=== PATIENT | female | born 1945 | race Caucasian/White ===

== ENCOUNTER 2021-01-24 10:37 | Outpatient (CLI) | payer MEDICARE, SELFPAY ==
--- NOTE | 2021-01-24 11:00 | MR_ITS ---
WS: [id number] MRI BRAIN WITHOUT CONTRAST HISTORY: NEW DAILY PERSISTENT HEADACHE;DIZZINESS;ALZHEIMERS DZ COMPARISON: 11/29/2007 TECHNIQUE: Diffusion imaging, multiplanar T1, T2 and FLAIR imaging obtained. No evidence for acute infarct or hemorrhage. Ferro-white matter differentiation is normal. Mild chronic microvascular ischemic changes in the periventricular white matter and subcortical white matter with moderate progression since 2007. Ventricles and extra-axial spaces are normal. No inferior displacement of cerebellar tonsils. The sella turcica and pituitary gland are unremarkabl e. Posterior fossa is also unremarkable. Dural venous sinuses and [place] demonstrate no abnormality on this unenhanced studies. Paranasal sinuses: Clear. Mastoid air cells: Normal. Calvarium and scalp: Intact. MR/MR head wo con* [id number] IMPRESSION: 1. No acute infarct. 2. Moderate chronic microvascular ischemic changes has moderately progressed s brittany 2007. No acute intracranial process.
== END 2021-01-24 10:38 | disposition home or self-care (01) ==
PROVIDERS: PCP Family Medicine; Visit Provider Nurse Practitioner Family
DX: G44.52 New daily persistent headache (NDPH) (principal); R42 Dizziness and giddiness; G30.9 Alzheimer's disease, unspecified
CPT/HCPCS: 70551

== ENCOUNTER 2021-04-02 09:09 | Outpatient (CLI) | payer MEDICARE, SELFPAY ==
[2021-04-02 09:36] VITALS: BP 136/80; PULSE 77; RESP 14; TEMP 37.1; O2SAT 97
[2021-04-02 10:57] VITALS: BP 116/67; PULSE 73; RESP 12; TEMP 37.2; O2SAT 97
== END 2021-04-02 15:49 | disposition home or self-care (01) ==
PROVIDERS: PCP Family Medicine; Visit Provider Internal Medicine
DX: U07.1 COVID-19 (principal)
CPT/HCPCS: 96365

== ENCOUNTER 2022-01-31 10:07 | Outpatient (CLI) | payer MEDICARE, SELFPAY ==
--- NOTE | 2022-01-31 10:19 | MM_ITS ---
WS: [id number] BILATERAL 3D TOMOSYNTHESIS DIGITAL SCREENING MAMMOGRAPHY WITH CAD CLINICAL INFORMATION: SCREENING HISTORY: Screening mammogram. No current complaints. COMPARISON: None. TECHNIQUE: Bilateral CC and MLO views. FINDINGS: The breasts are composed of heterogeneous fibroglandular density tissue, which can limit the detectio n of small underlying mass lesions. Vascular calcification. Punctate calcifications. Postoperative ch anges RIGHT breast with dystrophic calcifications. No suspicious mass, asymmetry, calcifications, or architectural distortion. No evidence of malignancy. MM/[place] [id number] IMPRESSION: BI-RADS: 2-Benign FOLLOW UP: 1 Year Follow-up Recommend return to annual screening mammography.
== END 2022-01-31 10:08 | disposition home or self-care (01) ==
PROVIDERS: PCP Family Medicine; Visit Provider Family Medicine
DX: Z12.31 Encounter for screening mammogram for malignant neoplasm of breast (principal)
CPT/HCPCS: 77063; 77067

== ENCOUNTER 2023-01-07 08:41 | Emergency (ER) | payer MEDICARE, SELFPAY ==
[2023-01-07 08:52] VITALS: BP 138/75; PULSE 92; TEMP 36.3; O2SAT 97
--- NOTE | 2023-01-07 09:02 | W.ED.GENADLT ---
HPI - General Adult General: Chief complaint: General Medical Stated complaint: nauseas, doesnt feel good Time Seen by Provider: 01/07/23 08:48 Source: patient Mode of arrival: ambulatory History of Present Illness: 77-year-old female presents emergency room complaining of just generally not feeling well. She is her with her at the visit. He is at the bedside. He states that she has some dementia and is not really able to give any symptoms other than just generally not feeling well. At times she is mention complaints of nausea no vomiting or diarrhea no fever sweats chills dysuria urgency or frequency denies chest pain or abdominal pain. Onset (ago): day(s) Associated symptoms: Reports confusion (Chronic at her baseline per family members), decreased appetite, malaise and nausea; Deny chest pain, cough, diaphoresis, dyspnea, fevers/chills, headache(s), rash, palpitations, seizures, short of breath, syncope, vomiting or weakness Review of Systems Const: Reports: malaise; Denies: fever(s), chills, fatigue or diaphoresis ENMT: Denies: throat pain, ear or mastoid pain, nasal discharge or nasal congestion Card: Denies: chest pain, palpitations or syncope Resp: Denies: dyspnea GI: Reports: nausea; Denies: abdominal pain or vomiting : Denies: flank pain, difficulty voiding, dysuria, urinary frequency or urinary urgency Skin/Breast: Denies: rash Neuro: Reports: confusion (Chronic at her baseline per family members); Denies: headache(s) PFS ED PFSH: Medical History Dementia Physical Exam Const: GENERAL APPEARANCE: cooperative and comfortable ORIENTATION/CONSCIOUSNESS: Yes awake HENMT: COMMON NORMALS: normocephalic, atraumatic and hearing grossly normal bilaterally HEAD & SCALP: normocephalic and atraumatic Resp: COMMON NORMALS: normal respiratory effort, No retractions, No use of accessory muscles and clear to auscultation bilaterally AUSCULTATION: clear to auscultation bilaterally Cardio: COMMON NORMALS: regular rate, regular rhythm and No murmurs present (Cardio) RATE: regular rate RHYTHM: regular rhythm GI: COMMON NORMALS: Soft to palpation and No hepatosplenomegaly present AUSCULTATION: Yes normoactive bowel sounds PALPATION: Yes Soft to palpation, No Tenderness to palpation present (GI), No Guarding due to palpation present (GI) and Yes No hepatosplenomegaly present Extremity: COMMON NORMALS: normal to inspection, capillary refill normal, no clubbing, cyanosis or edema, no calf tenderness and no pedal edema Skin: COMMON NORMALS: no rashes or lesions noted GENERAL SKIN EXAM: no rashes or lesions noted Course Vital Signs: Vital signs: Vital Signs Temperature 97.4 F L 01/07/23 08:52 Pulse Rate 80 01/07/23 10:29 Blood Pressure 119/64 01/07/23 10:29 Pulse Oximetry 95 01/07/23 10:29 MDM - General Adult Medical Decision Making Mild cystitis. Will start on Macrobid. Remainder of exam is negative no signs of any focal neurologic deficits no indication of acute coronary syndrome she is nonseptic in appearance will discharge home on Macrobid twice daily for 7 days follow-up with primary care return if is worsening problems Medical Records I reviewed the patient's medical records. Lab Data I reviewed the patient's lab results. 01/07/23 09:15 01/07/23 09:15 Laboratory Results WBC 11.0 10^3/uL (4.0-10.0) H 01/07/23 09:15 RBC 3.78 10^6/uL (4.1-5.3) L 01/07/23 09:15 Hgb 11.3 g/dL (11.5-15.3) L 01/07/23 09:15 Hct 35.9 % (37.0-47.0) L 01/07/23 09:15 MCV 95.0 fl (81-99) 01/07/23 09:15 MCH 29.9 pg (28.0-34.0) 01/07/23 09:15 MCHC 31.5 g/dL (30.0-36.0) 01/07/23 09:15 RDW 13.3 % (12.1-15.1) 01/07/23 09:15 Plt Count 252 10^3/cmm (130-400) 01/07/23 09:15 MPV 11.8 fL (7.4-10.4) H 01/07/23 09:15 Neut % (Auto) 78.2 % 01/07/23 09:15 Lymph % (Auto) 11.7 % 01/07/23 09:15 [place] % (Auto) 7.0 % 01/07/23 09:15 Eos % (Auto) 2.3 % 01/07/23 09:15 Baso % (Auto) 0.4 % 01/07/23 09:15 Neut # (Auto) 8.60 10^3/uL (1.8-7.7) H 01/07/23 09:15 Lymph # (Auto) 1.3 10^3/uL (0.8-4.8) 01/07/23 09:15 [place] # (Auto) 0.8 10^3/uL (0.2-0.9) 01/07/23 09:15 Eos # (Auto) 0.3 10^3/uL (0.0-0.8) 01/07/23 09:15 Baso # (Auto) 0.0 10^3/uL (0.0-0.1) 01/07/23 09:15 Nucleated RBC % (auto) 0 % 01/07/23 09:15 Nucleated RBCs # 0.0 /100WBC 01/07/23 09:15 Sodium 145 mmol/L (136-145) 01/07/23 09:15 Potassium 3.7 mmol/L (3.5-5.1) 01/07/23 09:15 Chloride 109 mmol/L (98-107) H 01/07/23 09:15 Carbon Dioxide 22 mmol/L (22-29) 01/07/23 09:15 Anion Gap 17.7 (5-19) 01/07/23 09:15 BUN 22 mg/dL (8-23) 01/07/23 09:15 Creatinine 0.7 mg/dL (0.5-0.9) 01/07/23 09:15 GFR Calculation Not Reportable 01/07/23 09:15 Glucose 112 mg/dL (65-115) 01/07/23 09:15 Calculated Osmolality 304 mOsm/kg (285-295) H 01/07/23 09:15 Calcium 9.1 mg/dL (8.5-10.5) 01/07/23 09:15 Total Bilirubin 0.3 mg/dL (0.15-1.2) 01/07/23 09:15 AST 15 U/L (0-32) 01/07/23 09:15 ALT 8 U/L (0-33) 01/07/23 09:15 Alkaline Phosphatase 54 U/L (35-105) 01/07/23 09:15 Total Protein 7.2 g/dL (6.6-8.7) 01/07/23 09:15 Albumin 4.6 g/dL (3.5-5.2) 01/07/23 09:15 Globulin 2.6 g/dL (1.3-4.6) 01/07/23 09:15 Lipase 18 U/L (13-60) 01/07/23 09:15 TSH 1.22 uIU/mL (0.27-4.20) 01/07/23 09:15 Urine Color Yellow (Yellow) 01/07/23 09:00 Urine Appearance Cloudy (CLEAR) A 01/07/23 09:00 Urine pH 5 (5-7) 01/07/23 09:00 Ur Specific [place] 1.025 (1.005-1.030) 01/07/23 09:00 Urine Protein 1+ (Negative) H 01/07/23 09:00 Urine Glucose (UA) Norm (Normal) 01/07/23 09:00 Urine Ketones Negative (Negative) 01/07/23 09:00 Urine Blood 2+ (Negative) H 01/07/23 09:00 Urine Nitrate Negative (Negative) 01/07/23 09:00 Urine Bilirubin Neg (Negative) 01/07/23 09:00 Urine Urobilinogen Norm mg/dL (Negative) 01/07/23 09:00 Ur Leukocyte Esterase 2+ (Negative) H 01/07/23 09:00 Urine RBC 0-4 /hpf (0-2) H 01/07/23 09:00 Urine WBC 25-40 /hpf (0-5) H 01/07/23 09:00 Ur Squamous Epith Cells 0-4 /hpf (0-5) H 01/07/23 09:00 Amorphous Sediment Not Reportable 01/07/23 09:00 Urine Bacteria 2+ /hpf (NONE) H 01/07/23 09:00 Discharge Plan Discharge Patient Disposition: Home Clinical Impression: Cystitis Condition: Stable Prescriptions: New Macrobid 100 mg capsule 100 mg PO BID 7 Days Qty: 14 0RF Rx Instructions: must administer with a meal/food No Action garlic 100 mg Tablet 100 mg PO DAILY lisinopril 20 mg tablet 20 mg PO BID lovastatin 40 mg tablet 80 mg PO DAILY amlodipine 5 mg tablet 5 mg PO BID levothyroxine 25 mcg tablet See Rx Instructions .ROUTE .COMPLEX Rx Instructions: 25 mcg one day and 50 mcg the next day lansoprazole 30 mg capsule,delayed release(DR/EC) 30 mg PO DAILY vitamin E 268 mg (400 unit) Capsule 268 mg PO DAILY Women's One Daily 27-0.4 mg Tablet 1 tab PO DAILY Vitamin D3 25 mcg (1,000 unit) Tablet 25 mcg PO DAILY Discharge Orders: Discharge ED (Routine); Ordered 01/07/23 Ordered By: Pavel Perez Referrals: Joseph Dawson MD [Primary Care Provider] - Discharge Diet: Usual diet Discharge Activity: Increase activity as tolerated Patient Instructions: Opioid Safety, Pain Management Activity Restrictions/Additional Instructions: You were seen today with complaint of generally not feeling well. Laboratory test showed you have a bladder infection. Recommend increasing oral fluids start on the antibiotic 1 pill twice daily for 7 days follow-up with primary care doctor if not improving or worsens. Coding Level of Care Code ED [employer] for Светлана Carlos
[2023-01-07 09:23] LABS: Add Urine Microscopic? YES; Bilirubin Urine Neg (Negative); Blood Urine 2+ (Negative); Glucose Urine UA Norm (Normal); Ketones Urine Negative (Negative); Leukocyte Esterase Urine 2+ (Negative); Nitrate Urine Negative (Negative); Protein Urine 1+ (Negative); Specific Gravity, Urine 1.025 (1.005-1.030); Urine Appearance Cloudy (CLEAR); Urine Color Yellow (Yellow); Urobilinogen Urine Norm (Negative); pH Urine 5 (5-7)
[2023-01-07 09:24] LABS: Add Urine Culture? Yes; Bacteria Urine 2+ /hpf; RBC Urine 0-4 /hpf (0-2); Squamous Epithelial Cell Urine 0-4 /hpf (0-5); WBC Urine 25-40 /hpf (0-5)
[2023-01-07 09:26] LABS: Basophils % 0.4 %; Eosinophils # 0.3 10^3/uL (0.0-0.8); Eosinophils % 2.3 %; Hematocrit 35.9 % (37.0-47.0); Hemoglobin 11.3 g/dL (11.5-15.3); Lymphocytes # 1.3 10^3/uL (0.8-4.8); Lymphocytes % 11.7 %; Mean Corpuscular HGB Conc 31.5 g/dL (30.0-36.0); Mean Corpuscular Hemoglobin 29.9 pg (28.0-34.0); Mean Platelet Volume 11.8 fL (7.4-10.4); Monocytes # 0.8 10^3/uL (0.2-0.9); Neutrophils % 78.2 %; Nucleated Red Blood Cells % 0 %; Platelet Count 252 10^3/cmm (130-400); Red Blood Count 3.78 10^6/uL (4.1-5.3); Red Cell Distribution Width 13.3 % (12.1-15.1)
[2023-01-07 09:47] LABS: Alanine Aminotransferase 8 U/L (0-33); Albumin Level 4.6 g/dL (3.5-5.2); Alkaline Phosphatase 54 U/L (35-105); Anion Gap 17.7 (5-19); Aspartate Amino Transferase 15 U/L (0-32); Blood Urea Nitrogen 22 mg/dL (8-23); Calcium 9.1 mg/dL (8.5-10.5); Carbon Dioxide 22 mmol/L (22-29); Chloride 109 mmol/L (98-107); Globulin 2.6 g/dL (1.3-4.6); Glucose 112 mg/dL (65-115); Lipase 18 U/L (13-60); Osmolality Calculated 304 mOsm/kg (285-295); Potassium 3.7 mmol/L (3.5-5.1); Sodium 145 mmol/L (136-145); Thyroid Stimulating Hormone 1.22 uIU/mL (0.27-4.20); Total Bilirubin 0.3 mg/dL (0.15-1.2); Total Protein 7.2 g/dL (6.6-8.7)
[2023-01-07 09:50] VITALS: BP 123/73; PULSE 80; O2SAT 95
[2023-01-07 10:29] VITALS: BP 119/64; PULSE 80; O2SAT 95
== END 2023-01-07 10:30 | disposition home or self-care (01) ==
PROVIDERS: Emergency Provider Family Medicine; PCP Family Medicine
DX: N30.90 Cystitis, unspecified without hematuria (principal); F03.90 Unspecified dementia, unspecified severity, without behavioral disturbance, psychotic disturbance, mood disturbance, and anxiety
CPT/HCPCS: 80053; 81001; 83690; 84443; 85025; 87077; 87086; 87186; 99283

== ENCOUNTER 2023-12-24 11:01 | Emergency (ER) | payer MEDICARE, SELFPAY ==
[2023-12-24] VITALS (8 sets, daily range): BP systolic 96–141; BP diastolic 57–72; PULSE 60–93; RESP 17–18; TEMP 36.4; O2SAT 94–100
--- NOTE | 2023-12-24 11:22 | XRR_ITS ---
PROCEDURE INFORMATION: Exam: XR Abdomen Exam date and time: 12/24/2023 11:37 AM Age: 78 years old Clinical indication: Abdominal pain TECHNIQUE: Imaging protocol: Radiologic exam of the abdomen. Views: 2 Views. Upright and supine views. COMPARISON: No relevant prior studies available. FINDINGS: Lungs: There is a calcified granuloma in the left lung base. There are no infiltrates. Heart/Mediastinum: The heart size is within normal limits. Gastrointestinal tract: The bowel-gas pattern is not obstructed. There is a fairly large amount of stool suggesting constipation without fecal impaction. Intraperitoneal space: There is no free intraperitoneal air detected. There are surgical clips in the right upper quadrant Organs: No organomegaly or soft tissue masses appreciated. Vasculature: There are atherosclerotic changes in the aorta. Bones/joints: There are mild degenerative changes in the spine Other: There are surgical clips in the right breast. XR/XR acute abdomen series [id number] IMPRESSION: 1. Calcified granuloma left lung base. No infiltrates 2. Negative for free intraperitoneal air 3. Nonobstructed bowel-gas pattern. 4. Fairly large amount of stool suggesting constipation without fecal impaction.
--- NOTE | 2023-12-24 11:26 | ED_ITS ---
HPI - Abdominal Pain 2 General: Chief Complaint: Abdominal Pain Stated Complaint: abd pain Time Seen by Provider: 12/24/23 11:17 History of Present Illness: 78-year-old female with a history of hyp ertension and hyperlipidemia who presents the emergency room with abdominal pain. She has been having pain for 2 to 3 days now. No nausea or vomiting. She describes a cramping type pain. No diarrhea. No fevers. No altered mental status. Review of Systems 2 General: Reports: ROS unobtainable due to mental status PFSH ED 2 PFSH: Medical History Dementia Physical Exam 2 Narrative: EXAM NARRATIVE: General: Alert, no acute distress. Skin: Warm, dry. Head: Normocephalic, atraumatic. Neck: Supple, trachea midline. Eye: Extraocular movements are intact. Ears, nose, mouth and throat: mucosa moist. Cardiovascular: Regular, Normal peripheral perfusion. Respiratory: Lungs are clear to auscultation, respirations are non-labored, breath sounds are equal, Symmetrical chest wall expansion. Gastrointestinal: Soft, moderate epigastric abdominal pain, Non distended, Normal bowel sounds. Musculoskeletal: Normal ROM, no deformity. Neurological: Alert and oriented to family only, No focal neurological deficit observed. Psychiatric: Cooperative, appropriate mood & affect. Course 2 Vital Signs: Vital signs: Vital Signs Temperature 97.5 F L 12/24/23 11:05 Pulse Rate 70 12/24/23 14:30 Respiratory Rate 18 12/24/23 14:30 Blood Pressure 119/66 12/24/23 14:30 Pulse Oximetry 97 12/24/23 14:30 Oxygen Delivery Me thod Room Air 12/24/23 14:30 MDM - Abdominal Pain Medical Decision Making Differential diagnosis for patient presenting with right upper quadrant abdominal pain including but not limited to and based on the above HPI, review of systems and physical exam: Cholelithiasis or cholecystitis. Hepatitis. Diverticulitis. Constipation. Ureterolithiasis. Urinary tract infection. Appendicitis. colitis. small bowel obstruction. crohn's flare. pancreatitis. gastritis. peptic ulcer. Aortic disection. Workup including imaging and lab work replaced based on the above differential, history and exam to evaluate differential diagnosis Lab Review: Laboratory results were reviewed and interpreted by myself the emergency room lab review is unremarkable. White count is 7. Hemoglobin is 11. BUN and creatinine are 20 and 0.6. No elevation in her liver enzymes. Physician. EKG: Time 1144 rate 55 sinus bradycardia, No ST-T changes, no ectopy, normal [place] & QRS intervals, This was reviewed and interpreted by myself the ER physician at 1148 Acute abdominal series: chest x-ray: No acute process. No obvious infiltrates. No pneumothorax. No cardiomegaly. This was reviewed and interpreted by myself the emergency room physician Abdomen x-ray: Large amount of stool which could represent constipation. Nonspecific bowel gas pattern. No evidence of free air or obstruction. This was reviewed and interpreted by myself the emergency room physician. CT of the abdomen pelvis with contrast: Large amount of stool. Constipation. Large fecal ball. This was reviewed and interpreted by myself the emergency room physician. I also reviewed the radiology report. I reviewed the patient's medical record. Reexamination: Patient received enema and some disimpaction. Mag citrate. Home on MiraLAX and glycerin suppositories. Lab Data 12/24/23 11:28 12/24/23 11:28 Labs/Radiology: Radiology Impressions Chest/Abdomen X-ray 12/24/23 11:22 IMPRESSION: 1. Calcified granuloma left lung base. No infiltrates 2. Negative for free intraperitoneal air 3. Nonobstructed bowel-gas pattern. 4. Fairly large amount of stool suggesting constipation without fecal impaction. Laboratory Results WBC 6.89 10^3/uL (3.29-11.43) 12/24/23 11:28 RBC 3.62 10^6/uL (3.85-5.65) L 12/24/23 11:28 Hgb 11.00 g/dL (11.27-16.99) L 12/24/23 11:28 Hct 34.1 % (36-47) L 12/24/23 11:28 MCV 94.2 fl (85-98) 12/24/23 11:28 MCH 30.4 pg (27-33) 12/24/23 11:28 MCHC 32.3 g/dL (30-55) 12/24/23 11:28 RDW 13.4 % (12.1-15.1) 12/24/23 11:28 Plt Count 252 10^3/cmm (157-399) 12/24/23 11:28 MPV 11.4 fL (7.4-10.4) H 12/24/23 11:28 Neut % (Auto) 69.3 % 12/24/23 11:28 Lymph % (Auto) 20.2 % 12/24/23 11:28 [place] % (Auto) 8.4 % 12/24/23 11:28 Eos % (Auto) 1.6 % 12/24/23 11:28 Baso % (Auto) 0.4 % 12/24/23 11:28 Neut # (Auto) 4.77 10^3/uL (1.8-7.7) 12/24/23 11:28 Lymph # (Auto) 1.4 10^3/uL (0.8-4.8) 12/24/23 11:28 Lewis # (Auto) 0.6 10^3/uL (0.2-0.9) 12/24/23 11:28 Eos # (Auto) 0.1 10^3/uL (0.0-0.8) 12/24/23 11:28 Baso # (Auto) 0.0 10^3/uL (0.0-0.1) 12/24/23 11:28 Nucleated RBC % (auto) 0 % 12/24/23 11:28 Nucleated RBCs # 0.0 /100WBC 12/24/23 11:28 Sodium 145 mmol/L (136-145) 12/24/23 11:28 Potassium 3.9 mmol/L (3.5-5.1) 12/24/23 11:28 Chloride 107 mmol/L (98-107) 12/24/23 11:28 Carbon Dioxide 26 mmol/L (22-29) 12/24/23 11:28 Anion Gap 15.9 (5-19) 12/24/23 11:28 BUN 20 mg/dL (8-23) 12/24/23 11:28 Creatinine 0.6 mg/dL (0.5-0.9) 12/24/23 11:28 GFR Calculation Not Reportable 12/24/23 11:28 Glucose 101 mg/dL (65-115) 12/24/23 11:28 Calculated Osmolality 303 mOsm/kg (285-295) H 12/24/23 11:28 Lactic Acid 1.9 mmol/L (0.5-2.2) 12/24/23 11:28 Calcium 9.8 mg/dL (8.5-10.5) 12/24/23 11:28 Total Bilirubin 0.4 mg/dL (0.15-1.2) 12/24/23 11:28 AST 10 U/L (0-32) 12/24/23 11:28 ALT 8 U/L (0-33) 12/24/23 11:28 Alkaline Phosphatase 45 U/L (35-105) 12/24/23 11:28 Troponin T Baseline 12 ng/L (0-10) H 12/24/23 11:28 Troponin T 120 Minute 11.04 ng/L (0-10) H 12/24/23 13:45 Delta Troponin T -0.96 ABS# (0-10) L 12/24/23 13:45 C-Reactive Protein 3.0 mg/L (0.0-4.9) 12/24/23 11:28 Total Protein 6.9 g/dL (6.6-8.7) 12/24/23 11:28 Albumin 4.4 g/dL (3.5-5.2) 12/24/23 11:28 Globulin 2.5 g/dL (1.3-4.6) 12/24/23 11:28 Lipase 20 U/L (13-60) 12/24/23 11:28 All radiology interpretation(s) finalized by discharge Other Data Assessment and plan: Constipation Dehydration - 500 mL normal saline bolus. - Enema and 1 bottle of mag citrate - Discharged home - Discussed findings and plan with patient. Answered any questions. - All laboratory values were reviewed and interpreted personally by myself, the ER physician - All imaging was reviewed and interpreted personally by myself, the ER physician. - Evaluation and treatment of this problem were appropriate in the emergency setting Discharge Plan Discharge Patient Disposition: Home Clinical Impression: Constipation, Dementia Condition: Stable Prescriptions: New Miralax 17 gram/dose powder 17 g PO DAILY Qty: 510 0RF Rx Instructions: Take 1-2 scoops daily for the next 3 months to keep stools soft glycerin (adult) Suppository 1 supp [place] DAILY PRN (Reason: constipation) Qty: 12 0RF No Action lisinopril 20 mg tablet 20 mg PO BID lovastatin 40 mg tablet 80 mg PO DAILY amlodipine 5 mg tablet 5 mg PO BID levothyroxine 25 mcg tablet See Rx Instructions .ROUTE .COMPLEX Rx Instructions: 25 mcg one day and 50 mcg the next day vitamin E 268 mg (400 unit) Capsule 268 mg PO DAILY Women's One Daily 27-0.4 mg Tablet 1 tab PO DAILY cholecalciferol (vitamin D3) [Vitamin D3] 25 mcg (1,000 unit) Tablet 25 mcg PO DAILY omeprazole 40 mg capsule,delayed release(DR/EC) 40 mg PO DAILY mirtazapine 15 mg tablet 15 mg PO BEDTIME Discharge Orders: Discharge ED (Routine); Ordered 12/24/23 Ordered By: Lauren Grewal Referrals: Joseph Dawson MD [Primary Care Provider] - (You have been screened and evaluated and felt safe for discharge. Health conditions do change or evolve sometimes and as such it is important that you follow up with your Primary Doctor to be re checked, 3-5 days is a general good time frame for follow up. You are always welcome to return to the ED for re assessment if your symptoms are worsening or you have new concerns) Discharge Diet: Advance as tolerated Discharge Activity: Resume usual activity Patient Instructions: Constipation - Adult Coding Level of Care Code ED [employer] for Светлана Carlos
[2023-12-24 11:39] LABS: Basophils % 0.4 %; Eosinophils # 0.1 10^3/uL (0.0-0.8); Eosinophils % 1.6 %; Hematocrit 34.1 % (36-47); Lymphocytes # 1.4 10^3/uL (0.8-4.8); Lymphocytes % 20.2 %; Mean Corpuscular HGB Conc 32.3 g/dL (30-55); Mean Corpuscular Hemoglobin 30.4 pg (27-33); Mean Corpuscular Volume 94.2 fl (85-98); Mean Platelet Volume 11.4 fL (7.4-10.4); Monocytes # 0.6 10^3/uL (0.2-0.9); Monocytes % 8.4 %; Neutrophils # 4.77 10^3/uL (1.8-7.7); Neutrophils % 69.3 %; Nucleated Red Blood Cells % 0 %; Platelet Count 252 10^3/cmm (157-399); Red Blood Count 3.62 10^6/uL (3.85-5.65); Red Cell Distribution Width 13.4 % (12.1-15.1); White Blood Count 6.89 10^3/uL (3.29-11.43)
--- NOTE | 2023-12-24 11:44 | ECG_ITS ---
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 Measurements Intervals [place] Rate: 55 P: 59 RI: 148 QRS: 64 QRSD: 90 T: 72 QT: 407 QTc: 392 Interpretive Statements SINUS BRADYCARDIA MODERATE ST DEPRESSION [0.05+ mV ST DEPRESSION] Compared to ECG 01/17/2018 05:36:12 ST (T wave) deviation now present Sinus rhythm no longer present T-wave abnormality no longer present Electronically Signed On 12-24-2023 15:09:34 CDT by Jayson Foley M.D. [email or web address]
[2023-12-24 11:55] LABS: Troponin(5th) Baseline 12 ng/L (0-10)
[2023-12-24 11:56] LABS: Lactic Sepsis W/Reflex 1.9 mmol/L (0.5-2.2)
[2023-12-24 11:59] LABS: Alanine Aminotransferase 8 U/L (0-33); Albumin Level 4.4 g/dL (3.5-5.2); Alkaline Phosphatase 45 U/L (35-105); Anion Gap 15.9 (5-19); Aspartate Amino Transferase 10 U/L (0-32); Blood Urea Nitrogen 20 mg/dL (8-23); Calcium 9.8 mg/dL (8.5-10.5); Carbon Dioxide 26 mmol/L (22-29); Chloride 107 mmol/L (98-107); Globulin 2.5 g/dL (1.3-4.6); Glucose 101 mg/dL (65-115); Lipase 20 U/L (13-60); Osmolality Calculated 303 mOsm/kg (285-295); Potassium 3.9 mmol/L (3.5-5.1); Sodium 145 mmol/L (136-145); Total Bilirubin 0.4 mg/dL (0.15-1.2); Total Protein 6.9 g/dL (6.6-8.7)
--- NOTE | 2023-12-24 12:05 | CT_ITS ---
WS: [id number] CT ABDOMEN AND PELVIS WITH CONTRAST HISTORY: Abdominal pain TECHNIQUE: Imaging performed of the abdomen and pelvis with IV contrast. Single phase imaging of the abdomen. Coronal and sagittal reformats are submitted. All CT scans at [facility] use at [address] one of these dose optimization techniques: automated exposure control; mA and/or kV adjustment per patient size (includes targeted exams where dose is matched to clinical indication); or iterative re construction. IV CONTRAST: Omnipaque 350; 100 mL IV. Oral contrast: No DLP: 326.98 mGy.cm COMPARISON: None available. Lower thorax: Chronic emphysematous changes at the lung bases. Heart is normal size. Large hiatal her nate. Stomach is nearly completely intrathoracic. Liver/biliary system: Normal size. Normal portal vein. There are a few tiny foci which are too small to characterize. No bile duct dilatation. Gallbladder: Status post cholecystectomy. Pancreas: Normal size pancreas and pancreatic duct. No adjacent inflammation. Spleen: Normal size spleen. No mass or infarct. Adrenal glands: Normal. Right kidney: Normal. Left kidney: Normal. Aorta: Moderate atherosclerosis. Atherosclerosis in the iliac arteries. Lymphadenopathy: None. Free fluid: None. GI tract: No small bowel obstruction. There is marked fecal retention and constipation. No obstructiv e pattern. Several diverticula in the sigmoid colon without acute diverticulitis. Marked rectal diste ntion to 6 cm in diameter. Abdominal wall: Unremarkable abdominal wall. No hernia. Pelvis: Normal urinary bladder. No uterus identified. No mass. Bones: Rib deformity in the anterior lower LEFT thorax may be from healed fractures. IMPRESSION: 1. Marked diffuse constipation and obstipation. Rectal impaction to 6 cm in diameter. 2. No adenopathy. No ascites. 3. Prior cholecystectomy. 4. Large portion of the stomach is intrathoracic.
[2023-12-24] MEDS: iohexol 350 mg/mL 500 mL Btl (per mL) IV (12:16)
[2023-12-24] MEDS: sodium chloride 0.9% 500 ML 999 ML IV (13:26)
[2023-12-24] MEDS: Fleet Enema 133 mL Enema PR (13:28)
[2023-12-24] MEDS: magnesium citrate Btl 296 mL PO (13:28)
[2023-12-24 14:13] LABS: Troponin 5 2HR 11.04 ng/L (0-10)
[2023-12-24 14:14] LABS: Troponin 5 2HR Delta -0.96 ABS# (0-10)
== END 2023-12-24 15:29 | disposition home or self-care (01) ==
PROVIDERS: Emergency Provider Emergency Medicine; PCP Family Medicine
DX: K59.00 Constipation, unspecified (principal); F03.90 Unspecified dementia, unspecified severity, without behavioral disturbance, psychotic disturbance, mood disturbance, and anxiety; I10 Essential (primary) hypertension; E78.5 Hyperlipidemia, unspecified
CPT/HCPCS: 36415; 74022; 74177; 80053; 83605; 83690; 84484; 85025; 86140; 87040; 93005; 96360; 96361; 99285; J7040; Q9967

== ENCOUNTER 2023-12-29 16:10 | Emergency (ER) | payer MEDICARE, SELFPAY ==
[2023-12-29 16:15] VITALS: BP 147/73; PULSE 86; RESP 16; TEMP 36.7; O2SAT 99
--- NOTE | 2023-12-29 17:06 | XRR_ITS ---
PROCEDURE INFORMATION: Exam: XR Abdomen Exam date and time: 12/29/2023 5:27 PM Age: 78 years old Clinical indication: Abdominal pain; Acute; Additional info: Abd pain/constipation TECHNIQUE: Imaging protocol: Radiologic exam of the abdomen. Views: Frontal supine view of the abdomen. 1 View. COMPARISON: CT abdomen pelvis w con* [id number] 12/24/2023 12:15 PM FINDINGS: Gastrointestinal tract: Nonobstructive bowel gas pattern. No evidence of free air or pneumatosis. Moderate stool burden. Bones/joints: No evidence of acute osseous abnormality. XR/XR abdomen 1V* [id number] IMPRESSION: 1. Nonobstructive bowel gas pattern.
--- NOTE | 2023-12-29 17:07 | ED_ITS ---
HPI - Abdominal Pain 2 General: Chief Complaint: Abdominal Pain Stated Complaint: abd pain Time Seen by Provider: 12/29/23 17:05 History of Present Illness: 70-year-old female presents emergency de partment with her . Patient's is the provider of the patient's history and presenting symptoms as the patient has severe advanced dementia. states that patient was seen here on 12/24/2023 for complaints of abdominal pain and was diagnosed with constipation. Patient states that she was also seen here yesterday although there does not appear to be a record of her being seen here in the emergency department yesterday. Patient's states that she has not had a significant bowel movement and feels that she has continued to express abdominal discomfort. He states that she is not very active and they mostly sit and watch television. He denies hematic emesis or hematochezia. He denies bright red bleeding per rectum or dark tarry stools. Review of Systems 2 General: Reports: 10 or more systems reviewed and unremarkable except in HPI and below, ROS unobtainable due to medical condition and ROS unobtainable due to mental status PFSH ED 2 PFSH: Medical History Dementia Physical Exam 2 Narrative: EXAM NARRATIVE: General: Alert to person only. Per family patient is at her baseline mental status given her longstanding history of dementia no acute distress. Skin: Warm, dry, Intact. Head: Normocephalic, atraumatic. Neck: Supple, trachea midline. Eye: Extraocular movements are intact. PERRLA Ears, nose, mouth and throat: mucosa moist. Cardiovascular: Normal rate and rhythm, Normal peripheral perfusion. Respiratory: Lungs are clear to auscultation, respirations are non-labored, breath sounds are equal, Symmetrical chest wall expansion. Gastrointestinal: Soft, Nontender to palpation, Non distended, Normal bowel sounds. Musculoskeletal: Normal ROM, no deformity. Psychiatric: Cooperative, appropriate mood & affect. Course 2 Vital Signs: Vital signs: Vital Signs Temperature 98.0 F 12/29/23 16:15 Pulse Rate 86 12/29/23 16:15 Respiratory Rate 16 12/29/23 16:15 Blood Pressure 147/73 12/29/23 16:15 Pulse Oximetry 99 12/29/23 16:15 MDM - Abdominal Pain Medical Decision Making Physical exam completed and documented, I did review the patient's previous medical record, radiographic and laboratory. Repeat CBC and CMP today does appear that the patient's hemoglobin is 9.8 down from 11 on 12/24/2023. The family denies active bleeding. I did discuss with Dr. Gonzalez the hospitalist admission of the patient and possible consult for colonoscopy and Dr. Gonzalez felt that the patient could be evaluated outpatient. I did discuss the need for follow-up with the patient's and did provide the patient by mouth magnesium citrate, senna S and an enema to help relieve her constipation. Medical Records I reviewed the patient's medical records. Lab Data I reviewed the patient's lab results. 12/29/23 17:19 12/29/23 17:19 Labs/Radiology: Radiology Impressions Abdomen X-Ray 12/29/23 17:06 IMPRESSION: 1. Nonobstructive bowel gas pattern. Laboratory Results WBC 6.71 10^3/uL (3.29-11.43) 12/29/23 17:19 RBC 3.24 10^6/uL (3.85-5.65) L 12/29/23 17:19 Hgb 9.80 g/dL (11.27-16.99) L 12/29/23 17:19 Hct 31.1 % (36-47) L 12/29/23 17:19 MCV 96.0 fl (85-98) 12/29/23 17:19 MCH 30.2 pg (27-33) 12/29/23 17:19 MCHC 31.5 g/dL (30-55) 12/29/23 17:19 RDW 13.2 % (12.1-15.1) 12/29/23 17:19 Plt Count 199 10^3/cmm (157-399) 12/29/23 17:19 MPV 12.0 fL (7.4-10.4) H 12/29/23 17:19 Neut % (Auto) 69.5 % 12/29/23 17:19 Lymph % (Auto) 19.1 % 12/29/23 17:19 [place] % (Auto) 8.9 % 12/29/23 17:19 Eos % (Auto) 1.8 % 12/29/23 17:19 Baso % (Auto) 0.4 % 12/29/23 17:19 Neut # (Auto) 4.66 10^3/uL (1.8-7.7) 12/29/23 17:19 Lymph # (Auto) 1.3 10^3/uL (0.8-4.8) 12/29/23 17:19 [place] # (Auto) 0.6 10^3/uL (0.2-0.9) 12/29/23 17:19 Eos # (Auto) 0.1 10^3/uL (0.0-0.8) 12/29/23 17:19 Baso # (Auto) 0.0 10^3/uL (0.0-0.1) 12/29/23 17:19 Nucleated RBC % (auto) 0 % 12/29/23 17:19 Nucleated RBCs # 0.0 /100WBC 12/29/23 17:19 Sodium 144 mmol/L (136-145) 12/29/23 17:19 Potassium 3.5 mmol/L (3.5-5.1) 12/29/23 17:19 Chloride 107 mmol/L (98-107) 12/29/23 17:19 Carbon Dioxide 25 mmol/L (22-29) 12/29/23 17:19 Anion Gap 15.5 (5-19) 12/29/23 17:19 BUN 15 mg/dL (8-23) 12/29/23 17:19 Creatinine 0.5 mg/dL (0.5-0.9) 12/29/23 17:19 GFR Calculation Not Reportable 12/29/23 17:19 Glucose 98 mg/dL (65-115) 12/29/23 17:19 Calculated Osmolality 299 mOsm/kg (285-295) H 12/29/23 17:19 Calcium 8.4 mg/dL (8.5-10.5) L 12/29/23 17:19 Total Bilirubin 0.2 mg/dL (0.15-1.2) 12/29/23 17:19 AST 9 U/L (0-32) 12/29/23 17:19 ALT 7 U/L (0-33) 12/29/23 17:19 Alkaline Phosphatase 44 U/L (35-105) 12/29/23 17:19 Total Protein 6.2 g/dL (6.6-8.7) L 12/29/23 17:19 Albumin 3.9 g/dL (3.5-5.2) 12/29/23 17:19 Globulin 2.3 g/dL (1.3-4.6) 12/29/23 17:19 Lipase 27 U/L (13-60) 12/29/23 17:19 All radiology interpretation(s) finalized by discharge Discharge Plan Discharge Patient Disposition: Home Clinical Impression: Dementia Constipation Qualifiers: Constipation type: unspecified constipation type Qualified Code(s): K59.00 - Constipation, unspecified Condition: Stable Prescriptions: New Senna-S 8.6-50 mg tablet 2 tab-cap PO BID Qty: 60 0RF No Action lisinopril 20 mg tablet 20 mg PO BID lovastatin 40 mg tablet 80 mg PO DAILY amlodipine 5 mg tablet 5 mg PO BID levothyroxine 25 mcg tablet See Rx Instructions .ROUTE .COMPLEX Rx Instructions: 25 mcg one day and 50 mcg the next day vitamin E 268 mg (400 unit) Capsule 268 mg PO DAILY Women's One Daily 27-0.4 mg Tablet 1 tab PO DAILY cholecalciferol (vitamin D3) [Vitamin D3] 25 mcg (1,000 unit) Tablet 25 mcg PO DAILY omeprazole 40 mg capsule,delayed release(DR/EC) 40 mg PO DAILY mirtazapine 15 mg tablet 15 mg PO BEDTIME Miralax 17 gram/dose powder 17 g PO DAILY Qty: 510 0RF Rx Instructions: Take 1-2 scoops daily for the next 3 months to keep stools soft glycerin (adult) Suppository 1 supp [place] DAILY PRN (Reason: constipation) Qty: 12 0RF Discharge Orders: Discharge ED (Routine); Ordered 12/29/23 Ordered By: Nasim Baker Referrals: Joseph Dawson MD [Primary Care Provider] - Discharge Diet: Usual diet Discharge Activity: Resume usual activity Patient Instructions: Opioid Safety, Pain Management Activity Restrictions/Additional Instructions: Activity Restrictions/Additional Instructions: Thank you for choosing [facility] for your healthcare needs today. Please realize that you were seen in the Emergency Department and that we are providing you with an emergency medical screening exam and this may not be a complete and all inclusive of all the testing and or medical work-up that you may need to determine your ailment or severity of your illness. It is very important that you follow-up as instructed with your Primary care provider or Specialist for additional evaluation and to discuss your medical treatment plan. You may return to the Emergency Department should you have concerns or if your condition changes or worsens in any way. Coding Level of Care Code ED Hvac Controls Technician for Светлана Carlos
[2023-12-29 17:30] LABS: Basophils % 0.4 %; Eosinophils # 0.1 10^3/uL (0.0-0.8); Eosinophils % 1.8 %; Hematocrit 31.1 % (36-47); Lymphocytes # 1.3 10^3/uL (0.8-4.8); Lymphocytes % 19.1 %; Mean Corpuscular HGB Conc 31.5 g/dL (30-55); Mean Corpuscular Hemoglobin 30.2 pg (27-33); Monocytes # 0.6 10^3/uL (0.2-0.9); Monocytes % 8.9 %; Neutrophils # 4.66 10^3/uL (1.8-7.7); Neutrophils % 69.5 %; Nucleated Red Blood Cells % 0 %; Platelet Count 199 10^3/cmm (157-399); Red Blood Count 3.24 10^6/uL (3.85-5.65); Red Cell Distribution Width 13.2 % (12.1-15.1); White Blood Count 6.71 10^3/uL (3.29-11.43)
[2023-12-29 17:57] LABS: Alanine Aminotransferase 7 U/L (0-33); Albumin Level 3.9 g/dL (3.5-5.2); Alkaline Phosphatase 44 U/L (35-105); Anion Gap 15.5 (5-19); Aspartate Amino Transferase 9 U/L (0-32); Blood Urea Nitrogen 15 mg/dL (8-23); Calcium 8.4 mg/dL (8.5-10.5); Carbon Dioxide 25 mmol/L (22-29); Chloride 107 mmol/L (98-107); Globulin 2.3 g/dL (1.3-4.6); Glucose 98 mg/dL (65-115); Lipase 27 U/L (13-60); Osmolality Calculated 299 mOsm/kg (285-295); Potassium 3.5 mmol/L (3.5-5.1); Sodium 144 mmol/L (136-145); Total Bilirubin 0.2 mg/dL (0.15-1.2); Total Protein 6.2 g/dL (6.6-8.7)
[2023-12-29] MEDS: magnesium citrate Btl 296 mL PO (18:13)
[2023-12-29] MEDS: mineral oil ENEMA 133 mL PR (18:13)
[2023-12-29] MEDS: sennosides-docusate Tablet 2 TAB PO (18:13)
== END 2023-12-29 18:32 | disposition home or self-care (01) ==
PROVIDERS: Emergency Provider Internal Medicine; PCP Family Medicine
DX: K59.00 Constipation, unspecified (principal); F03.C0 Unspecified dementia, severe, without behavioral disturbance, psychotic disturbance, mood disturbance, and anxiety
CPT/HCPCS: 74018; 80053; 83690; 85025; 99284

== ENCOUNTER 2024-01-18 15:03 | Emergency (ER) | payer MEDICARE, SELFPAY ==
[2024-01-18 15:12] VITALS: BP 130/70; PULSE 92; RESP 16; TEMP 36.6; O2SAT 98
--- NOTE | 2024-01-18 16:07 | XRR_ITS ---
PROCEDURE INFORMATION: Exam: XR Abdomen Exam date and time: 01/18/2024 4:52 PM Age: 78 years old Clinical indication: Abdominal pain; Generalized TECHNIQUE: Imaging protocol: Radiologic exam of the abdomen. Views: 2 Views. Upright and supine views. COMPARISON: CR (ABDOMEN, ) 12/29/2023 5:27 PM FINDINGS: Lungs: Visualized lung bases are clear. Gastrointestinal tract: Large colonic stool burden projecting over the pelvis. Overall nonobstructive bowel gas pattern. Intraperitoneal space: No evidence of intra-abdominal free air. Organs: Cholecystectomy clips project over the right upper quadrant. Bones/joints: No acute osseous findings. XR/XR acute abdomen series [id number] IMPRESSION: Large colonic stool burden projecting over the pelvis. Overall nonobstructive bowel gas pattern.
[2024-01-18 16:34] LABS: Basophils % 0.2 %; Eosinophils % 0.3 %; Hematocrit 33.7 % (36-47); Lymphocytes # 0.7 10^3/uL (0.8-4.8); Lymphocytes % 7.6 %; Mean Corpuscular Hemoglobin 29.8 pg (27-33); Mean Corpuscular Volume 92.8 fl (85-98); Mean Platelet Volume 11.4 fL (7.4-10.4); Monocytes # 0.7 10^3/uL (0.2-0.9); Monocytes % 7.1 %; Neutrophils # 8.09 10^3/uL (1.8-7.7); Neutrophils % 84.4 %; Nucleated Red Blood Cells % 0 %; Platelet Count 275 10^3/cmm (157-399); Red Blood Count 3.63 10^6/uL (3.85-5.65); Red Cell Distribution Width 12.9 % (12.1-15.1); White Blood Count 9.59 10^3/uL (3.29-11.43)
[2024-01-18 16:47] LABS: Alanine Aminotransferase < 5 U/L (0-33); Albumin Level 4.2 g/dL (3.5-5.2); Alkaline Phosphatase 57 U/L (35-105); Anion Gap 14.5 (5-19); Aspartate Amino Transferase 10 U/L (0-32); Blood Urea Nitrogen 11 mg/dL (8-23); C Reactive Protein 7.1 mg/L (0.0-4.9); Calcium 9.8 mg/dL (8.5-10.5); Carbon Dioxide 27 mmol/L (22-29); Chloride 104 mmol/L (98-107); Glucose 106 mg/dL (65-115); Lactic Sepsis W/Reflex 0.9 mmol/L (0.5-2.2); Osmolality Calculated 294 mOsm/kg (285-295); Potassium 3.5 mmol/L (3.5-5.1); Sodium 142 mmol/L (136-145); Total Bilirubin 0.3 mg/dL (0.15-1.2); Total Protein 7.2 g/dL (6.6-8.7)
[2024-01-18 17:06] VITALS: BP 151/68; PULSE 70; RESP 14; O2SAT 97
--- NOTE | 2024-01-18 17:20 | W.ED.ABDPA2 ---
HPI - Abdominal Pain General: Chief Complaint: Abdominal Pain Stated Complaint: abd pain Time Seen by Provider: 01/18/24 17:02 History of Present Illness: 78-year-old female with a history of dementia who presents to the emergency room with abdominal pain. She had been treated for constipation/fecal blockage recently. She cannot really tell what hurts and does not seem to be having pain right now but has been complaining of pain at home according to the family member. Low abdominal pain. No nausea or vomiting. No fevers. Review of Systems Narrative: Unable to obtain secondary to dementia PFSH ED PFSH: Medical History Dementia Physical Exam Narrative: EXAM NARRATIVE: General: Alert, no acute distress. Skin: Warm, dry. Head: Normocephalic, atraumatic. Neck: Supple, trachea midline. Eye: Extraocular movements are intact. Ears, nose, mouth and throat: mucosa moist. Cardiovascular: Regular, Normal peripheral perfusion. Respiratory: Lungs are clear to auscultation, respirations are non-labored, breath sounds are equal, Symmetrical chest wall expansion. Gastrointestinal: Soft, Nontender, Non distended, Normal bowel sounds. Musculoskeletal: Normal ROM, no deformity. Neurological: Alert and oriented to her family member, No focal neurological deficit observed. Psychiatric: Cooperative, pleasantly demented Course Vital Signs: Vital signs: Vital Signs Temperature 97.8 F 01/18/24 15:12 Pulse Rate 71 01/18/24 18:30 Respiratory Rate 16 01/18/24 18:00 Blood Pressure 130/70 01/18/24 18:30 Pulse Oximetry 98 01/18/24 18:30 Oxygen Delivery Me thod Room Air 01/18/24 18:30 MDM - Abdominal Pain Medical Decision Making Medical decision making: Differential diagnosis including but not limited to and based on the above HPI, review of systems and physical exam: In this 78-year-old demented patient with abdominal pain will be concern for small bowel obstruction, constipation, diverticulitis, urinary tract infection. Orders placed to evaluate differential diagnosis based on the above differential, HPI and physical exam Lab Review: Laboratory results were reviewed and interpreted by myself the emergency room physician. No leukocytosis. White count is 10.5. Hemoglobin is stable at 10.8. BUN and creatinine are 11 and 0.6. I reviewed the patient's medical record. Acute abdominal series: chest x-ray: No acute process. No obvious infiltrates. No pneumothorax. No cardiomegaly. This was reviewed and interpreted by myself the emergency room physician Abdomen x-ray: Nonspecific bowel gas pattern. No evidence of free air or obstruction. This was reviewed and interpreted by myself the emergency room physician. Reexamination: Patient has had no pain while she is been here. is wanting to go home. He says they are tired and they have been here too long. She has had no focal motor deficits. No increased work of breathing. Assessment and plan: Abdominal pain - Discharged home - Discussed plan with patient. Answered any questions. - Evaluation and treatment of this problem were appropriate in the emergency setting. Lab Data 01/18/24 16:21 01/18/24 16:21 Labs/Radiology: Laboratory Results WBC 9.59 10^3/uL (3.29-11.43) 01/18/24 16:21 RBC 3.63 10^6/uL (3.85-5.65) L 01/18/24 16:21 Hgb 10.80 g/dL (11.27-16.99) L 01/18/24 16:21 Hct 33.7 % (36-47) L 01/18/24 16:21 MCV 92.8 fl (85-98) 01/18/24 16:21 MCH 29.8 pg (27-33) 01/18/24 16:21 MCHC 32.0 g/dL (30-55) 01/18/24 16:21 RDW 12.9 % (12.1-15.1) 01/18/24 16:21 Plt Count 275 10^3/cmm (157-399) 01/18/24 16:21 MPV 11.4 fL (7.4-10.4) H 01/18/24 16:21 Neut % (Auto) 84.4 % 01/18/24 16:21 Lymph % (Auto) 7.6 % 01/18/24 16:21 [place] % (Auto) 7.1 % 01/18/24 16:21 Eos % (Auto) 0.3 % 01/18/24 16:21 Baso % (Auto) 0.2 % 01/18/24 16:21 Neut # (Auto) 8.09 10^3/uL (1.8-7.7) H 01/18/24 16:21 Lymph # (Auto) 0.7 10^3/uL (0.8-4.8) L 01/18/24 16:21 [place] # (Auto) 0.7 10^3/uL (0.2-0.9) 01/18/24 16:21 Eos # (Auto) 0.0 10^3/uL (0.0-0.8) 01/18/24 16:21 Baso # (Auto) 0.0 10^3/uL (0.0-0.1) 01/18/24 16:21 Nucleated RBC % (auto) 0 % 01/18/24 16:21 Nucleated RBCs # 0.0 /100WBC 01/18/24 16:21 Sodium 142 mmol/L (136-145) 01/18/24 16:21 Potassium 3.5 mmol/L (3.5-5.1) 01/18/24 16:21 Chloride 104 mmol/L (98-107) 01/18/24 16:21 Carbon Dioxide 27 mmol/L (22-29) 01/18/24 16:21 Anion Gap 14.5 (5-19) 01/18/24 16:21 BUN 11 mg/dL (8-23) 01/18/24 16:21 Creatinine 0.6 mg/dL (0.5-0.9) 01/18/24 16:21 GFR Calculation Not Reportable 01/18/24 16:21 Glucose 106 mg/dL (65-115) 01/18/24 16:21 Calculated Osmolality 294 mOsm/kg (285-295) 01/18/24 16:21 Lactic Acid 0.9 mmol/L (0.5-2.2) 01/18/24 16:21 Calcium 9.8 mg/dL (8.5-10.5) 01/18/24 16:21 Total Bilirubin 0.3 mg/dL (0.15-1.2) 01/18/24 16:21 AST 10 U/L (0-32) 01/18/24 16:21 ALT < 5 U/L (0-33) 01/18/24 16:21 Alkaline Phosphatase 57 U/L (35-105) 01/18/24 16:21 C-Reactive Protein 7.1 mg/L (0.0-4.9) H 01/18/24 16:21 Total Protein 7.2 g/dL (6.6-8.7) 01/18/24 16:21 Albumin 4.2 g/dL (3.5-5.2) 01/18/24 16:21 Globulin 3.0 g/dL (1.3-4.6) 01/18/24 16:21 XR interpretation done by ED provider, pending radiology final review Discharge Plan Discharge Patient Disposition: Home Clinical Impression: Constipation Condition: Stable Prescriptions: No Action Senna-S 8.6-50 mg tablet 2 tab-cap PO BID Qty: 60 0RF lisinopril 20 mg tablet 20 mg PO BID lovastatin 40 mg tablet 80 mg PO DAILY amlodipine 5 mg tablet 5 mg PO BID levothyroxine 25 mcg tablet See Rx Instructions .ROUTE .COMPLEX Rx Instructions: 25 mcg one day and 50 mcg the next day vitamin E 268 mg (400 unit) Capsule 268 mg PO DAILY Women's One Daily 27-0.4 mg Tablet 1 tab PO DAILY cholecalciferol (vitamin D3) [Vitamin D3] 25 mcg (1,000 unit) Tablet 25 mcg PO DAILY omeprazole 40 mg capsule,delayed release(DR/EC) 40 mg PO DAILY mirtazapine 15 mg tablet 15 mg PO BEDTIME Miralax 17 gram/dose powder 17 g PO DAILY Qty: 510 0RF Rx Instructions: Take 1-2 scoops daily for the next 3 months to keep stools soft glycerin (adult) Suppository 1 supp [place] DAILY PRN (Reason: constipation) Qty: 12 0RF Discharge Orders: Discharge ED (Routine); Ordered 01/18/24 Ordered By: Lauren Grewal Referrals: Joseph Dawson MD [Primary Care Provider] - Discharge Diet: Usual diet Discharge Activity: Increase activity as tolerated Patient Instructions: Constipation (ED) Activity Restrictions/Additional Instructions: Thank you for choosing [facility] for your healthcare needs today. Please realize this is an emergency room and that we are providing you with a medical screening exam and this may not be complete and all inclusive of all the testing and or work up that you may need to determine your ailment or severity of your illness. You have been screened and evaluated and felt safe for discharge. Health conditions do change or evolve sometimes and as such it is important that you follow up with your Primary Doctor to be re checked, 3-5 days is a general good time frame for follow up. You are always welcome to return to the ED for re assessment if your symptoms are worsening or you have new concerns Coding Level of Care Code ED Supervisor Ticket Sales for Светлана Carlos
[2024-01-18 17:30] VITALS: BP 127/66; PULSE 70; RESP 15; O2SAT 97
[2024-01-18 18:00] VITALS: BP 138/76; PULSE 78; RESP 16; O2SAT 98
[2024-01-18 18:30] VITALS: BP 130/70; PULSE 71; O2SAT 98
[2024-01-18 19:07] LABS: Bilirubin Urine Neg (Negative); Blood Urine Neg (Negative); Glucose Urine UA Norm (Normal); Ketones Urine Negative (Negative); Nitrate Urine Positive (Negative); Protein Urine Neg (Negative); Specific Gravity, Urine 1.015 (1.005-1.030); Urine Appearance SL Hazy (CLEAR); Urine Color Straw (Yellow); Urobilinogen Urine Norm (Negative); pH Urine 5 (5-7)
[2024-01-18 19:08] LABS: Add Urine Culture? Yes; Bacteria Urine 2+ /hpf; Leukocyte Esterase Urine 1+ (Negative); Squamous Epithelial Cell Urine RARE /hpf (0-5); Transitional Epi Cells Urine 0-4 /hpf; WBC Urine 15-25 /hpf (0-5)
== END 2024-01-18 18:59 | disposition home or self-care (01) ==
PROVIDERS: Emergency Provider Emergency Medicine; PCP Family Medicine
DX: K59.00 Constipation, unspecified (principal); F03.90 Unspecified dementia, unspecified severity, without behavioral disturbance, psychotic disturbance, mood disturbance, and anxiety
CPT/HCPCS: 36415; 74022; 80053; 81001; 83605; 85025; 86140; 87077; 87086; 87186; 99284

== ENCOUNTER 2024-02-20 20:11 | Emergency (ER) | payer MEDICARE, SELFPAY ==
[2024-02-20 20:17] VITALS: BP 117/62; PULSE 60; RESP 18; TEMP 36.4; O2SAT 99; BMI 19.0
[2024-02-20 20:35] VITALS: BP 109/61; PULSE 61; RESP 18; O2SAT 98
[2024-02-20 20:58] LABS: Basophils % 0.5 %; Eosinophils # 0.2 10^3/uL (0.0-0.8); Eosinophils % 2.4 %; Hematocrit 30.6 % (36-47); Lymphocytes # 1.9 10^3/uL (0.8-4.8); Lymphocytes % 21.7 %; Mean Corpuscular HGB Conc 31.4 g/dL (30-55); Mean Corpuscular Hemoglobin 29.8 pg (27-33); Mean Platelet Volume 12.2 fL (7.4-10.4); Monocytes # 0.8 10^3/uL (0.2-0.9); Neutrophils # 5.76 10^3/uL (1.8-7.7); Neutrophils % 66.2 %; Nucleated Red Blood Cells % 0 %; Platelet Count 193 10^3/cmm (157-399); Red Blood Count 3.22 10^6/uL (3.85-5.65); Red Cell Distribution Width 14.3 % (12.1-15.1)
--- NOTE | 2024-02-20 20:58 | ED_ITS ---
HPI - Abdominal Pain 2 General: Chief Complaint: Abdominal Pain Stated Complaint: ABD Pain/ FTT Time Seen by Provider: 02/20/24 20:17 Source: patient and EMS History of Present Illness: 78-year-old patient with a history of de mentia. She is a poor historian. She does not know why she is here. No family has come with her. Evidently, she was discharged from the nursing facility to home earlier today. That is about all we know at this point. The patient does say that her belly hurts. She has a history of constipation. MD elicited complaint: abdominal pain Review of Systems 2 General: Reports: ROS unobtainable due to mental status PFSH ED 2 PFSH: Medical History Dementia Physical Exam 2 Const: EXAM LIMITATIONS: altered mental status GENERAL APPEARANCE: c ooperative and frail appearing HENMT: COMMON NORMALS: normocephalic and atraumatic HEAD & SCALP: n ormocephalic and atraumatic Eye: COMMON NORMALS: Equal, round and reactive pupils present and EOMs intact bilaterally PUPIL: Yes Equal, round and reactive pupils present Neck/C-Spine: GENERAL: Yes trachea midline Chest: CHEST: Yes Symmetrical chest wall rise Resp: COMMON NORMALS: normal respiratory effort, No retractions, No use of accessory muscles and clear to auscultation bilaterally AUSCULTATION: clear to auscultation bilaterally Cardio: COMMON NORMALS: regular rate and regular rhythm RATE: regular rate RHYTHM: regular rhythm GI: COMMON NORMALS: Normal to inspection, nondistended, normoactive bowel sounds present and Soft to palpation PALPATION: Yes Soft to palpation and Yes Tenderness to palpation present (GI) (Generalized mild) Neuro: [place] COMA SCALE: document GCS findings Cor[place] coma scale eye opening: Spontaneous [place]azon coma scale verbal response: Words [place] coma scale motor response: Localising Corazon coma scale total score: 12 Course 2 Vital Signs: Vital signs: Vital Signs Temperature 97.5 F L 02/20/24 20:17 Pulse Rate 64 02/21/24 01:59 Respiratory Rate 16 02/21/24 01:59 Blood Pressure 109/61 02/20/24 20:35 Pulse Oximetry 98 02/21/24 01:59 Oxygen Delivery Me thod Room Air 02/21/24 00:42 MDM - Abdominal Pain Medical Decision Making Exam is limited by the patient's ability to give history. She does have a history of constipation. Hemoglobin is 9.6. White blood cell count is 8.7. BUN is 27. She is received IV fluid here. Her CRP is 3. She does have a urinary tract infection. Abdominal series is negative for obstruction or other acute process. She will be discharged Lab Data 02/20/24 20:53 02/20/24 21:24 Labs/Radiology: Radiology Impressions Chest/Abdomen X-ray 02/20/24 20:59 IMPRESSION: 1. No acute cardiopulmonary disease. 2. No plain film evidence of acute intra-abdominal or pelvic process. Laboratory Results WBC 8.70 10^3/uL (3.29-11.43) 02/20/24 20:53 RBC 3.22 10^6/uL (3.85-5.65) L 02/20/24 20:53 Hgb 9.60 g/dL (11.27-16.99) L 02/20/24 20:53 Hct 30.6 % (36-47) L 02/20/24 20:53 MCV 95.0 fl (85-98) 02/20/24 20:53 MCH 29.8 pg (27-33) 02/20/24 20:53 MCHC 31.4 g/dL (30-55) 02/20/24 20:53 RDW 14.3 % (12.1-15.1) 02/20/24 20:53 Plt Count 193 10^3/cmm (157-399) 02/20/24 20:53 MPV 12.2 fL (7.4-10.4) H 02/20/24 20:53 Neut % (Auto) 66.2 % 02/20/24 20:53 Lymph % (Auto) 21.7 % 02/20/24 20:53 [place] % (Auto) 9.0 % 02/20/24 20:53 Eos % (Auto) 2.4 % 02/20/24 20:53 Baso % (Auto) 0.5 % 02/20/24 20:53 Neut # (Auto) 5.76 10^3/uL (1.8-7.7) 02/20/24 20:53 Lymph # (Auto) 1.9 10^3/uL (0.8-4.8) 02/20/24 20:53 [place] # (Auto) 0.8 10^3/uL (0.2-0.9) 02/20/24 20:53 Eos # (Auto) 0.2 10^3/uL (0.0-0.8) 02/20/24 20:53 Baso # (Auto) 0.0 10^3/uL (0.0-0.1) 02/20/24 20:53 Nucleated RBC % (auto) 0 % 02/20/24 20:53 Nucleated RBCs # 0.0 /100WBC 02/20/24 20:53 Sodium 140 mmol/L (136-145) 02/20/24 21:24 Potassium 3.6 mmol/L (3.5-5.1) 02/20/24 21:24 Chloride 104 mmol/L (98-107) 02/20/24 21:24 Carbon Dioxide 24 mmol/L (22-29) 02/20/24 21:24 Anion Gap 15.6 (5-19) 02/20/24 21:24 BUN 27 mg/dL (8-23) H 02/20/24 21:24 Creatinine 0.7 mg/dL (0.5-0.9) 02/20/24 21:24 GFR Calculation Not Reportable 02/20/24 21:24 Glucose 90 mg/dL (65-115) 02/20/24 21:24 Calculated Osmolality 295 mOsm/kg (285-295) 02/20/24:24 Calcium 9.2 mg/dL (8.5-10.5) 02/20/24 21:24 Total Bilirubin 0.2 mg/dL (0.15-1.2) 02/20/24 21:24 AST 12 U/L (0-32) 02/20/24 21:24 ALT 12 U/L (0-33) 02/20/24 21:24 Alkaline Phosphatase 41 U/L (35-105) 02/20/24 21:24 C-Reactive Protein 3.0 mg/L (0.0-4.9) 02/20/24:24 Total Protein 6.2 g/dL (6.6-8.7) L 02/20/24:24 Albumin 3.9 g/dL (3.5-5.2) 02/20/24 21:24 Globulin 2.3 g/dL (1.3-4.6) 02/20/24 21:24 Lipase 38 U/L (13-60) 02/20/24 21:24 Urine Color Yellow (Yellow) 02/20/24 23:18 Urine Appearance Cloudy (CLEAR) A 02/20/24 23:18 Urine pH 5 (5-7) 02/20/24 23:18 Ur Specific [place] 1.010 (1.005-1.030) 02/20/24 23:18 Urine Protein Neg (Negative) 02/20/24 23:18 Urine Glucose (UA) Norm (Normal) 02/20/24 23:18 Urine Ketones Negative (Negative) 02/20/24 23:18 Urine Blood Neg (Negative) 02/20/24 23:18 Urine Nitrate Negative (Negative) 02/20/24 23:18 Urine Bilirubin Neg (Negative) 02/20/24 23:18 Urine Urobilinogen Neg mg/dL (Negative) 02/20/24 23:18 Ur Leukocyte Esterase 2+ (Negative) H 02/20/24 23:18 Urine RBC 0-4 /hpf (0-2) H 02/20/24 23:18 Urine WBC 15-25 /hpf (0-5) H 02/20/24 23:18 Ur Squamous Epith Cells 0-4 /hpf (0-5) H 02/20/24 23:18 Amorphous Sediment Not Reportable 02/20/24 23:18 Urine Bacteria 2+ /hpf (NONE) H 02/20/24 23:18 Hyaline Casts 0-4 /lpf H 02/20/24 23:18 Urine Mucus Trace /hpf 02/20/24 23:18 All radiology interpretation(s) finalized by discharge Discharge Plan Discharge Patient Disposition: Home Clinical Impression: Dementia, Acute UTI Condition: Stable Prescriptions: New cefdinir 300 mg capsule 300 mg PO BID Qty: 14 0RF No Action Senna-S 8.6-50 mg tablet 2 tab-cap PO BID Qty: 60 0RF lisinopril 20 mg tablet 20 mg PO BID lovastatin 40 mg tablet 80 mg PO DAILY amlodipine 5 mg tablet 5 mg PO BID levothyroxine 25 mcg tablet See Rx Instructions .ROUTE .COMPLEX Rx Instructions: 25 mcg one day and 50 mcg the next day vitamin E 268 mg (400 unit) Capsule 268 mg PO DAILY Women's One Daily 27-0.4 mg Tablet 1 tab PO DAILY cholecalciferol (vitamin D3) [Vitamin D3] 25 mcg (1,000 unit) Tablet 25 mcg PO DAILY omeprazole 40 mg capsule,delayed release(DR/EC) 40 mg PO DAILY mirtazapine 15 mg tablet 15 mg PO BEDTIME Miralax 17 gram/dose powder 17 g PO DAILY Qty: 510 0RF Rx Instructions: Take 1-2 scoops daily for the next 3 months to keep stools soft glycerin (adult) Suppository 1 supp [place] DAILY PRN (Reason: constipation) Qty: 12 0RF Discharge Orders: Discharge ED (Routine); Ordered 02/21/24 Ordered By: Christian Tabor Referrals: Joseph Dawson MD [Primary Care Provider] - 1-3 days Patient Instructions: Urinary Tract Infection in Older Adults (ED), Opioid Safety, Pain Management Activity Restrictions/Additional Instructions: Return for fever despite 2-3 doses of antibiotics, worsening mental status despite treatment, vomiting liquids or medications, other concerning symptoms. Call your doctor on Thursday. Coding Level of Care Code ED Ichthyologist for Светлана Carlos
--- NOTE | 2024-02-20 20:59 | XRR_ITS ---
PROCEDURE INFORMATION: Exam: XR Abdomen Exam date and time: 02/20/2024 9:09 PM Age: 78 years old Clinical indication: Bloating and constipation; Generalized; Patient HX: Abdominal pain; Distention; Constipation; HX sbo TECHNIQUE: Imaging protocol: Radiologic exam of the abdomen. Views: 2 Views. Upright and supine views. COMPARISON: CR XR acute abdomen series [id number] 01/18/2024 4:52 PM FINDINGS: Lungs: The lungs are clear. No pulmonary consolidation. Pleural spaces: No pleural effusion or pneumothorax. Heart/Mediastinum: Heart size is within normal limits. Moderate retrocardiac opacity consistent with hiatal hernia. Gastrointestinal tract: Nonspecific bowel-gas pattern without evidence of large or small bowel obstruction. Intraperitoneal space: Normal. No free air. Vasculature: Atherosclerotic calcifications of the aorta are noted. Bones/joints: No acute osseous abnormalities are seen. XR/XR acute abdomen series [id number] IMPRESSION: 1. No acute cardiopulmonary disease. 2. No plain film evidence of acute intra-abdominal or pelvic process.
[2024-02-20 21:45] LABS: Alanine Aminotransferase 12 U/L (0-33); Albumin Level 3.9 g/dL (3.5-5.2); Alkaline Phosphatase 41 U/L (35-105); Anion Gap 15.6 (5-19); Aspartate Amino Transferase 12 U/L (0-32); Blood Urea Nitrogen 27 mg/dL (8-23); Calcium 9.2 mg/dL (8.5-10.5); Carbon Dioxide 24 mmol/L (22-29); Chloride 104 mmol/L (98-107); Creatinine Clr Calc Pharmacy 48.4544; Globulin 2.3 g/dL (1.3-4.6); Glucose 90 mg/dL (65-115); Lipase 38 U/L (13-60); Osmolality Calculated 295 mOsm/kg (285-295); Potassium 3.6 mmol/L (3.5-5.1); Sodium 140 mmol/L (136-145); Total Bilirubin 0.2 mg/dL (0.15-1.2); Total Protein 6.2 g/dL (6.6-8.7)
[2024-02-20 23:38] LABS: Add Urine Culture? Yes; Add Urine Microscopic? YES; Bacteria Urine 2+ /hpf; Bilirubin Urine Neg (Negative); Blood Urine Neg (Negative); Glucose Urine UA Norm (Normal); Hyaline Casts Urine 0-4 /lpf; Ketones Urine Negative (Negative); Leukocyte Esterase Urine 2+ (Negative); Mucus Urine TRACE /hpf; Nitrate Urine Negative (Negative); Protein Urine Neg (Negative); RBC Urine 0-4 /hpf (0-2); Squamous Epithelial Cell Urine 0-4 /hpf (0-5); Urine Appearance Cloudy (CLEAR); Urine Color Yellow (Yellow); Urobilinogen Urine Neg (Negative); WBC Urine 15-25 /hpf (0-5); pH Urine 5 (5-7)
[2024-02-21] MEDS: cefTRIAXone 1,000 MG in sodium chloride 0.9% (plus) 50 ML 100 MG IV (00:19)
[2024-02-21 00:42] VITALS: PULSE 60; RESP 18; O2SAT 93
[2024-02-21 01:59] VITALS: PULSE 64; RESP 16; O2SAT 98
== END 2024-02-21 01:35 | disposition home or self-care (01) ==
PROVIDERS: Emergency Provider Emergency Medicine; PCP Family Medicine
DX: F03.90 Unspecified dementia, unspecified severity, without behavioral disturbance, psychotic disturbance, mood disturbance, and anxiety (principal); N39.0 Urinary tract infection, site not specified
CPT/HCPCS: 36415; 74022; 80053; 81001; 83690; 85025; 86140; 87077; 87086; 87186; 96365; 99284; J0696

== ENCOUNTER 2024-03-30 19:24 | Inpatient (IN) | payer MEDICARE, SELFPAY ==
[2024-03-30 19:26] VITALS: BP 137/77; PULSE 101; RESP 20; TEMP 36.9; O2SAT 98; BMI 18.3
--- NOTE | 2024-03-30 19:27 | CTR_ITS ---
PROCEDURE INFORMATION: Exam: CT Head Without Contrast Exam date and time: 03/30/2024 8:13 PM Age: 78 years old Clinical indication: Altered mental status/memory loss; Additional info: AMS TECHNIQUE: Imaging protocol: Computed tomography of the head without contrast. Radiation optimization: All CT scans at this facility use at least one of these dose optimization techniques: automated exposure control; mA and/or kV adjustment per patient size (includes targeted exams where dose is matched to clinical indication); or iterative reconstruction. COMPARISON: MR head wo con* [id number] 01/24/2021 11:15 AM RADIATION DOSE METRICS: Total DLP (mGy-cm): 1165.28 FINDINGS: Brain: No acute intracranial hemorrhage or territorial infarction. No mass effect or midline shift. Moderate microangiopathy and global cerebral volume loss. Cerebral ventricles: No ventriculomegaly. Paranasal sinuses: Visualized sinuses are unremarkable. No fluid levels. Mastoid air cells: Visualized mastoid air cells are well aerated. Bones: No acute fracture. Chronic nasal bone fracture. Soft tissues: Unremarkable. CT/CT head wo con* [id number] IMPRESSION: Acute intracranial findings. Moderate microangiopathy and global cerebral volume loss.
--- NOTE | 2024-03-30 19:27 | XRR_ITS ---
PROCEDURE INFORMATION: Exam: XR Chest Exam date and time: 03/30/2024 8:04 PM Age: 78 years old Clinical indication: Dyspnea; Additional info: AMS TECHNIQUE: Imaging protocol: Radiologic exam of the chest. Views: 1 view. COMPARISON: CR (ABDOMEN, ) 02/20/2024 9:09 PM FINDINGS: Lungs: The lungs are adequately expanded. No focal consolidations or pulmonary edema. Nodular opacity overlying the left costophrenic angle likely representing the nipple. Pleural spaces: No pleural effusions or pneumothorax. Skin fold overlies the left hemithorax. Asymmetric elevation of the right hemidiaphragm. Heart/Mediastinum: No cardiomegaly. Bones/joints: No acute fractures. XR/XR chest 1V portable [id number] IMPRESSION: No acute pulmonary disease.
--- NOTE | 2024-03-30 19:28 | ECG_ITS ---
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 Measurements Intervals [place] Rate: 100 P: 7 MD: 116 QRS: 57 QRSD: 86 T: 57 QT: 362 QTc: 468 Interpretive Statements SINUS TACHYCARDIA WITH SHORT MD INTERVAL MINIMAL ST DEPRESSION [0.025+ mV ST DEPRESSION] Compared to ECG 12/24/2023 11:44:14 Short MD interval now present Sinus bradycardia no longer present ST (T wave) deviation still present Electronically Signed On 03-31-2024 9:06:00 CDT by Sadi Rivera M.D. [email or web address]/store/[id number] f
--- NOTE | 2024-03-30 19:29 | ED_ITS ---
HPI - General Adult 2 General: Chief complaint: Altered Mental Status Stated complaint: AMS Time Seen by Provider: 03/30/24 19:25 Source: EMS Mode of arrival: EMS Limitations: altered mental status History of Present Illness: 70-year-old female with a history of dem entia EMS states that her states she had increasing weakness and decline over the last week. Amy states that at her baseline typically she is up and is able to talk and take care of self patient currently is not speaking at all. Patient is minimally responsive here she does look at me with her eyes but will not move any extremities. This has been going on for roughly a week. No known recent illness Review of Systems 2 General: Reports: ROS unobtainable due to mental status PFSH ED 2 PFSH: Medical History Dementia Physical Exam 2 Const: COMMON NORMALS: negative for patient oriented x3 EXAM LIMITATIONS: a ltered mental status GENERAL APPEARANCE: ill appearing HENMT: COMMON NORMALS: normocephalic and atraumatic HEAD & SCALP: n ormocephalic and atraumatic Eye: COMMON NORMALS: Equal, round and reactive pupils present and EOMs intact bilaterally PUPIL: Yes Equal, round and reactive pupils present Neck/C-Spine: COMMON NORMALS: full ROM and supple Chest: COMMONS NORMALS: normal inspection of the chest Resp: COMMON NORMALS: normal respiratory effort, No retractions, No use of accessory muscles and clear to auscultation bilaterally AUSCULTATION: clear to auscultation bilaterally Cardio: COMMON NORMALS: regular rate, regular rhythm and No murmurs present (Cardio) RATE: regular rate RHYTHM: regular rhythm GI: COMMON NORMALS: Normal to inspection, nondistended, normoactive bowel sounds present, Soft to palpation, non-tender and no masses PALPATION: Yes Soft to palpation Extremity: COMMON NORMALS: normal to inspection and full ROM Neuro: COMMON NORMALS: negative for patient oriented x3 and negative for moves all extremities Psych: COMMON NORMALS: negative for mental status grossly normal Skin: COMMON NORMALS: no rashes or lesions noted and no wounds GENERAL SKIN EXAM: no rashes or lesions noted Course 2 Vital Signs: Vital signs: Vital Signs Temperature 98.4 F 03/30/24 19:26 Pulse Rate 85 03/30/24 21:21 Respiratory Rate 16 03/30/24 21:21 Blood Pressure 137/90 03/30/24 21:21 Pulse Oximetry 100 03/30/24 21:21 Oxygen Delivery Me thod Room Air 03/30/24 21:21 MDM - General Adult Medical Decision Making Patient presents here with altered mental status imaging blood work here is normal patient still quite altered here will admit at this time. Medical Records I reviewed the patient's medical records. Lab Data I reviewed the patient's lab results. 03/30/24 19:40 03/30/24 19:40 Radiology Impressions Chest X-Ray 03/30/24 19:27 IMPRESSION: No acute pulmonary disease. Head CT 03/30/24 19:27 IMPRESSION: Acute intracranial findings. Moderate microangiopathy and global cerebral volume loss. ADDENDUM: 03/30/242042 Please note the impression should read no acute intracranial findings. Chest CT 03/30/24 20:15 IMPRESSION: 1. Calcified granuloma of the left lower lobe previously described as a nodular opacity overlying the left costophrenic angle. No suspicious pulmonary nodules. Mild atelectasis of the posterior right lung base. 2. Moderately sized hiatal hernia. Laboratory Results WBC 12.15 10^3/uL (3.29-11.43) H 03/30/24 19:40 RBC 3.99 10^6/uL (3.85-5.65) 03/30/24 19:40 Hgb 11.10 g/dL (11.27-16.99) L 03/30/24 19:40 Hct 35.2 % (36-47) L 03/30/24 19:40 MCV 88.2 fl (85-98) 03/30/24 19:40 MCH 27.8 pg (27-33) 03/30/24 19:40 MCHC 31.5 g/dL (30-55) 03/30/24 19:40 RDW 14.3 % (12.1-15.1) 03/30/24 19:40 Plt Count 242 10^3/cmm (157-399) 03/30/24 19:40 MPV 12.5 fL (7.4-10.4) H 03/30/24 19:40 Neut % (Auto) 80.9 % 03/30/24 19:40 Lymph % (Auto) 5.8 % 03/30/24 19:40 [place] % (Auto) 8.0 % 03/30/24 19:40 Eos % (Auto) 4.4 % 03/30/24 19:40 Baso % (Auto) 0.4 % 03/30/24 19:40 Neut # (Auto) 9.83 10^3/uL (1.8-7.7) H 03/30/24 19:40 Lymph # (Auto) 0.7 10^3/uL (0.8-4.8) L 03/30/24 19:40 [place] # (Auto) 1.0 10^3/uL (0.2-0.9) H 03/30/24 19:40 Eos # (Auto) 0.5 10^3/uL (0.0-0.8) 03/30/24 19:40 Baso # (Auto) 0.1 10^3/uL (0.0-0.1) 03/30/24 19:40 Nucleated RBC % (auto) 0 % 03/30/24 19:40 Nucleated RBCs # 0.0 /100WBC 03/30/24 19:40 Sodium 138 mmol/L (136-145) 03/30/24 19:40 Potassium 3.4 mmol/L (3.5-5.1) L 03/30/24 19:40 Chloride 101 mmol/L (98-107) 03/30/24 19:40 Carbon Dioxide 22 mmol/L (22-29) 03/30/24 19:40 Anion Gap 18.4 (5-19) 03/30/24 19:40 BUN 19 mg/dL (8-23) 03/30/24 19:40 Creatinine 0.5 mg/dL (0.5-0.9) 03/30/24 19:40 GFR Calculation Not Reportable 03/30/24 19:40 Glucose 106 mg/dL (65-115) 03/30/24 19:40 POC Glucose 108 mg/dL (70-110) 03/30/24 20:10 Calculated Osmolality 289 mOsm/kg (285-295) 03/30/24 19:40 Lactic Acid 0.8 mmol/L (0.5-2.2) 03/30/24 19:40 Calcium 9.2 mg/dL (8.5-10.5) 03/30/24 19:40 Magnesium 1.9 mg/dL (1.7-2.3) 03/30/24 19:40 Total Bilirubin 1.0 mg/dL (0.15-1.2) 03/30/24 19:40 AST 133 U/L (0-32) H 03/30/24 19:40 ALT 64 U/L (0-33) H 03/30/24 19:40 Alkaline Phosphatase 249 U/L (35-105) H 03/30/24 19:40 Troponin T Baseline 24 ng/L (0-10) H 03/30/24 19:40 Total Protein 7.0 g/dL (6.6-8.7) 03/30/24 19:40 Albumin 3.7 g/dL (3.5-5.2) 03/30/24 19:40 Globulin 3.3 g/dL (1.3-4.6) 03/30/24 19:40 TSH 0.84 uIU/mL (0.27-4.20) 03/30/24 19:40 Urine Color Yellow (Yellow) 03/30/24 20:12 Urine Appearance Turbid (CLEAR) A 03/30/24 20:12 Urine pH 7.5 (5-7) 03/30/24 20:12 Ur Specific [place] 1.015 (1.005-1.030) 03/30/24 20:12 Urine Protein Trace (Negative) A 03/30/24 20:12 Urine Glucose (UA) Negative (Normal) 03/30/24 20:12 Urine Ketones Negative (Negative) 03/30/24 20:12 Urine Blood Negative (Negative) 03/30/24 20:12 Urine Nitrate Negative (Negative) 03/30/24 20:12 Urine Bilirubin Negative (Negative) 03/30/24 20:12 Urine Urobilinogen 1.0 mg/dL (Negative) 03/30/24 20:12 Ur Leukocyte Esterase Trace (Negative) A 03/30/24 20:12 Urine RBC 0-2 /hpf (0-2) 03/30/24 20:12 Urine WBC 6-10 /hpf (0-5) 03/30/24 20:12 Ur Squamous Epith Cells 0-5 /hpf (0-5) 03/30/24 20:12 Amorphous Sediment Not Reportable 03/30/24 20:12 Urine Bacteria None seen /hpf (NONE) 03/30/24 20:12 Hyaline Casts 0.81 /lpf 03/30/24 20:12 All radiology interpretation(s) finalized by discharge EKG Data EKG 1: I personally reviewed and interpreted this EKG as follows: EKG interpretation date: 03/30/24 EKG interpretation time: 19:33 Interpretation: sinus tach hr [address] elevation qrs 86 qtc 419 Computer generated interpretation: Chest X-Ray 03/30/24 19:27 IMPRESSION: No acute pulmonary disease. Head CT 03/30/24 19:27 IMPRESSION: Acute intracranial findings. Moderate microangiopathy and global cerebral volume loss. ADDENDUM: 03/30/242042 Please note the impression should read no acute intracranial findings. Chest CT 03/30/24 20:15 IMPRESSION: 1. Calcified granuloma of the left lower lobe previously described as a nodular opacity overlying the left costophrenic angle. No suspicious pulmonary nodules. Mild atelectasis of the posterior right lung base. 2. Moderately sized hiatal hernia. Discharge Plan Discharge Patient Disposition: Admitted As Inpatient Clinical Impression: Altered mental status Condition: Stable Coding Level of Care Code ED Director [employer] for Светлана Carlos
[2024-03-30 19:54] LABS: Basophils # 0.1 10^3/uL (0.0-0.1); Basophils % 0.4 %; Eosinophils # 0.5 10^3/uL (0.0-0.8); Eosinophils % 4.4 %; Hematocrit 35.2 % (36-47); Lymphocytes # 0.7 10^3/uL (0.8-4.8); Lymphocytes % 5.8 %; Mean Corpuscular HGB Conc 31.5 g/dL (30-55); Mean Corpuscular Hemoglobin 27.8 pg (27-33); Mean Corpuscular Volume 88.2 fl (85-98); Mean Platelet Volume 12.5 fL (7.4-10.4); Neutrophils # 9.83 10^3/uL (1.8-7.7); Neutrophils % 80.9 %; Nucleated Red Blood Cells % 0 %; Platelet Count 242 10^3/cmm (157-399); Red Blood Count 3.99 10^6/uL (3.85-5.65); Red Cell Distribution Width 14.3 % (12.1-15.1); White Blood Count 12.15 10^3/uL (3.29-11.43)
[2024-03-30 20:02] VITALS: BP 137/77; PULSE 96; RESP 16; O2SAT 96
[2024-03-30] MEDS: sodium chloride 0.9% 1,000 ML 999 ML IV (20:04)
[2024-03-30 20:13] LABS: Glucose Point of Care 108 mg/dL (70-110)
--- NOTE | 2024-03-30 20:15 | CTR_ITS ---
PROCEDURE INFORMATION: Exam: CT Chest Without Contrast; Diagnostic Exam date and time: 03/30/2024 8:17 PM Age: 78 years old Clinical indication: Other: AMS; Additional info: Mass TECHNIQUE: Imaging protocol: Diagnostic computed tomography of the chest without contrast. Radiation optimization: All CT scans at this facility use at least one of these dose optimization techniques: automated exposure control; mA and/or kV adjustment per patient size (includes targeted exams where dose is matched to clinical indication); or iterative reconstruction. COMPARISON: CR (CHEST, ) 03/30/2024 8:04 PM RADIATION DOSE METRICS: Total DLP (mGy-cm): 253.92 FINDINGS: Trachea: Central airways are patent. Lungs: Calcified granuloma of the left lower lobe previously described as a nodular opacity overlying the left costophrenic angle. No suspicious pulmonary nodules. Mild atelectasis of the posterior right lung base. Pleural spaces: Unremarkable. No pneumothorax. No pleural effusion. Heart: Unremarkable. No cardiomegaly. No pericardial effusion. Coronary arteries: Severe coronary artery calcifications. Lymph nodes: Unremarkable. No enlarged lymph nodes. Vasculature: Severe atherosclerotic calcifications. Diaphragm: Moderate hiatal hernia. Gallbladder and biliary ducts: Status post cholecystectomy. Bones/joints: Chronic appearing deformity of the superior endplate of T12. Soft tissues: Unremarkable. Other findings: Mild emphysema. CT/CT chest wo con [id number] IMPRESSION: 1. Calcified granuloma of the left lower lobe previously described as a nodular opacity overlying the left costophrenic angle. No suspicious pulmonary nodules. Mild atelectasis of the posterior right lung base. 2. Moderately sized hiatal hernia.
[2024-03-30 20:23] LABS: Albumin Level 3.7 g/dL (3.5-5.2); Alkaline Phosphatase 249 U/L (35-105); Chloride 101 mmol/L (98-107); Potassium 3.4 mmol/L (3.5-5.1); Sodium 138 mmol/L (136-145)
[2024-03-30 20:24] LABS: Lactic Sepsis W/Reflex 0.8 mmol/L (0.5-2.2)
[2024-03-30 20:25] LABS: Troponin(5th) Baseline 24 ng/L (0-10)
[2024-03-30 20:50] LABS: Charge for UA Resulting for Rev
[2024-03-30 20:53] LABS: Bilirubin Urine Negative (Negative); Blood Urine Negative (Negative); Glucose Urine UA Negative (Normal); Ketones Urine Negative (Negative); Leukocyte Esterase Urine Trace (Negative); Nitrate Urine Negative (Negative); Protein Urine Trace (Negative); Specific Gravity, Urine 1.015 (1.005-1.030); Urine Appearance Turbid (CLEAR); Urine Color Yellow (Yellow); pH Urine 7.5 (5-7)
[2024-03-30 20:58] LABS: Bacteria Urine None Seen /hpf; Hyaline Casts Urine 0.81 /lpf; RBC Urine 0-2 /hpf (0-2); Squamous Epithelial Cell Urine 0-5 /hpf (0-5)
[2024-03-30 21:08] LABS: Alanine Aminotransferase 64 U/L (0-33); Anion Gap 18.4 (5-19); Aspartate Amino Transferase 133 U/L (0-32); Blood Urea Nitrogen 19 mg/dL (8-23); Calcium 9.2 mg/dL (8.5-10.5); Carbon Dioxide 22 mmol/L (22-29); Creatinine Clr Calc Pharmacy 49.5508; Globulin 3.3 g/dL (1.3-4.6); Glucose 106 mg/dL (65-115); Magnesium 1.9 mg/dL (1.7-2.3); Osmolality Calculated 289 mOsm/kg (285-295)
[2024-03-30 21:18] LABS: Thyroid Stimulating Hormone 0.84 uIU/mL (0.27-4.20)
[2024-03-30 21:21] VITALS: BP 137/90; PULSE 85; RESP 16; O2SAT 100
--- NOTE | 2024-03-30 21:30 | ECG_ITS ---
[facility] Test Date: 2024-03-30 Pat Name: Amanda Chahal Department: Room: Gender: Female Director Volunteer Services: : 1945 Requested By: Bozena Fish Order Number: [id number] Alec MD: Sadi Rivera M.D. Measurements Intervals [place] Rate: 91 P: 61 AL: 152 QRS: 63 QRSD: 81 T: 56 QT: 363 QTc: 448 Interpretive Statements SINUS RHYTHM SEPTAL MYOCARDIAL INFARCTION , PROBABLY OLD [40+ ms Q WAVE IN V1/V2] Compared to ECG 03/30/2024 19:33:19 Myocardial infarct finding now present Sinus tachycardia no longer present Short AL interval no longer present ST (T wave) deviation no longer present Electronically Signed On 03-31-2024 9:07:07 CDT by Sadi Rivera M.D. [id number]
--- NOTE | 2024-03-30 21:42 | P.HP_ITS ---
Providers/Chief Complaint 2 Primary Care Provider: Joseph Dawson MD Chief Complaint: AMS History of Present Illness Amanda Chahal is a 78 year old female is not able provide any history, I called her who is not able to provide any information as well, stating that she was released from the senior living but sent to the hospital because of concern related to seizure and wanted ct head. As per the EMS patient was going to hospice facility [facility] [phone] today but they did not have CT head that is why she was sent to our hospital as nearby facility. is not able provide specific history either. He is not sure about hospice. He is stating that 4 days ago patient had an episode of seizure. He is stating that patient was discharged to a senior living [place]. As per the patient was able to walk and talk and able to eat that has changed recently but he is not able to specify what was that episode. As per [facility] staff pt was needing verbal cues under supervision for ambulation Patient remained confused with metabolic encephalopathy most of the time?flat She was discharged on 03/10 There is a number listed for child Víctor Craven [phone] Review of Systems 2 General: Reports: ROS unobtainable due to medical condition Medications/Allergies Home Medications Medication Instructions Recorded Confirmed Last Taken Type amlodipine 5 mg tablet 5 mg PO BID 01/07/23 12/24/23 12/24/23 History cholecalciferol (vitamin D3) 25 25 mcg PO DAILY 01/07/23 12/24/23 01/06/23 History mcg (1,000 unit) tablet (Vitamin D3) levothyroxine 25 mcg tablet See Rx Instructions .Route .COMPLEX 01/07/23 12/24/23 01/06/23 History lisinopril 20 mg tablet 20 mg PO BID 01/07/23 12/24/23 12/24/23 History lovastatin 40 mg tablet 80 mg PO DAILY 01/07/23 12/24/23 12/24/23 History cbdgtwnedpkw-Jb-hzbv-minerals 27 1 tab PO DAILY 01/07/23 12/24/23 01/06/23 History mg-0.4 mg tablet vitamin E 268 mg (400 unit) capsule 268 mg PO DAILY 01/07/23 12/24/23 01/06/23 History glycerin (adult) 1 supp [facility] DAILY PRN constipation 12/24/23 Unknown Rx #12 ea mirtazapine 15 mg tablet 15 mg PO BEDTIME 12/24/23 12/24/23 Unknown History omeprazole 40 mg capsule,delayed 40 mg PO DAILY 12/24/23 12/24/23 Unknown History release polyethylene glycol 3350 17 17 g PO DAILY #510 grams 12/24/23 Unknown Rx gram/dose oral powder (Miralax) sennosides 8.6 mg-docusate sodium 2 tab-cap (2 x 8.6-50 mg) PO BID 12/29/23 Unknown Rx 50 mg tablet (Senna-S) #60 tabs cefdinir 300 mg capsule 300 mg PO BID #14 caps 02/20/24 Unknown Rx Allergies Allergy/AdvReac Type Severity Reaction Status Date / Time No Known Allergies Allergy Verified 12/24/23 11:09 PFSH Acute 2 PFSH: Medical History Hypothyroid HTN (hypertension) Hiatal hernia Dementia Vitals/I&O/Wt Last Vital Signs Temp 98.4 F 03/30/24 19:26 Pulse 85 03/30/24 21:21 Resp 16 03/30/24 21:21 BP 137/90 03/30/24 21:21 Pulse Ox 100 03/30/24 21:21 O2 Del Method Room Air 03/30/24 21:21 Weight last 48 hrs Weight 49.895 kg Physical Exam 2 Narrative: Patient is oriented to herself Only responding to painful stimuli Pupils are symmetrical She is able to move her extremities to painful stimuli with withdrawal response She makes sounds on painful stimuli and not able to communicate Does not make eye contact Able to protect airway Hemodynamically stable Looks dehydrated Abdomen soft Urinary Catheter Management: Castillo: Cath Placed During This Visit: yes Urinary Catheter Date of Insertion: 03/30/24 Urinary Catheter Time of Insertion: 20:44 Data 03/30/24 19:40 03/30/24 19:40 A&P Assessment and plan (1) Altered mental status: (2) Dementia: (3) Hypokalemia: Plan Altered mental status Metabolic encephalopathy Concern for seizure Patient is able to clear airway Will request ammonia level, TSH, B12, CT abdomen pelvis, ABG Patient response to painful stimuli Able to move her extremities to painful stimuli Pupils are symmetrical Seem like she has underlying dementia Has had multiple admissions in the ER for constipation is not sure about hospice care, I will keep her full code until it is sorted out Start DVT prophylaxis Patient seems to have catatonia I will give her 1 dose of Ativan I will place her on IV antibiotics for UTI, place Castillo catheter I will continue her antihypertensive regimen Discontinue mirtazapine I spoke with her , called [facility], reviewed previous documentation, ER documentation reviewed she was in the hospital multiple times she was evaluated from the ER, she had multiple visits related to constipation abdominal pain Attestations 2 Medical Necessity Statement*: More than 2 midnights anticipated Diagnoses Altered mental status R41.82 Dementia F03.90 Hypokalemia E87.6
[2024-03-30 21:48] VITALS: BP 137/90; PULSE 81; RESP 16; O2SAT 98
--- NOTE | 2024-03-30 21:49 | CTR_ITS ---
PROCEDURE INFORMATION: Exam: CT Abdomen And Pelvis With Contrast Exam date and time: 03/30/2024 10:08 PM Age: 78 years old Clinical indication: Abdominal pain; Additional info: AMS TECHNIQUE: Imaging protocol: Computed tomography of the abdomen and pelvis with contrast. Radiation optimization: All CT scans at this facility use at least one of these dose optimization techniques: automated exposure control; mA and/or kV adjustment per patient size (includes targeted exams where dose is matched to clinical indication); or iterative reconstruction. Contrast material: OMNI 350; Contrast volume: 100 ml; Contrast route: INTRAVENOUS (IV); COMPARISON: CT abdomen pelvis w con* [id number] 12/24/2023 12:15 PM RADIATION DOSE METRICS: Total DLP (mGy-cm): 349 FINDINGS: Lungs: Calcified granuloma of the left lung base. Emphysema of the lung bases. Heart: Cardiomegaly. Coronary arteries: Coronary artery calcifications. Diaphragm: Moderately sized hiatal hernia. Liver: Normal. No mass. Gallbladder and biliary ducts: Normal. No calcified stones. No ductal dilation. Pancreas: Normal. No ductal dilation. Spleen: Normal. No splenomegaly. Adrenal glands: Normal. No mass. Kidneys and ureters: Normal. No hydronephrosis. Stomach and bowel: Severe diverticulosis without evidence diverticulitis. Appendix: No evidence of appendicitis. Intraperitoneal space: No free air. No significant fluid collection. Vasculature: Severe atherosclerotic calcifications. Lymph nodes: Unremarkable. No enlarged lymph nodes. Urinary bladder: Castillo catheter within the bladder. Reproductive: Unremarkable as visualized. Bones/joints: Chronic deformity of the superior endplates of T12 and L5. Chronic left rib deformities. Soft tissues: Unremarkable. CT/CT abdomen pelvis w con* [id number] IMPRESSION: 1. Moderately sized hiatal hernia. 2. Severe diverticulosis without evidence of diverticulitis.
[2024-03-30 22:00] LABS: ABG PCO2 25.8 mmHg (35-45); ABG PH Result 7.48 (7.35-7.45); Arterial Blood Gas Hematocrit 32.6 % (37-47); Base Excess ABG -3.1 mmol/L (-2.0-2.0); Blood Gas Allen Test Pos; Blood Gas Operator Identificat CL; Blood Gas Sample Site Radial, right; Blood Gas Sample Type Arterial; HCO3 ABG 19.3 mmol/L (22-26)
[2024-03-30 22:03] LABS: D Dimer 2.14 ug/mLFEU (0-0.59)
[2024-03-30 22:05] LABS: Troponin 5 2HR 22.46 ng/L (0-10)
[2024-03-30 22:07] LABS: Troponin 5 2HR Delta -1.54 ABS# (0-10)
[2024-03-30 22:10] VITALS: BP 137/90; PULSE 81; RESP 16; TEMP 36.9; O2SAT 98
[2024-03-30 22:12] LABS: Amphetamines Screen Urine Negative (Negative); Barbiturates Screen Urine Negative (Negative); Benzodiazepines Screen Urine Negative (Negative); Cocaine Screen Urine Negative (Negative); Opiate Screen Urine Negative (Negative); PCP Screen Urine Negative (Negative); THC Screen Urine Negative (Negative)
[2024-03-30 22:15] LABS: Ammonia 11 umol/L (11-51)
[2024-03-30] MEDS: iohexol 350 mg/mL 500 mL Btl (per mL) IV (22:19)
[2024-03-30 22:20] LABS: Procalcitonin 0.65 ng/mL (0-0.5)
[2024-03-30 22:34] LABS: Prolactin 18.71 ng/mL (4.8-23.3)
[2024-03-30 22:36] LABS: Alcohol Level < 10 mg/dL (0-10)
[2024-03-31] MEDS: enoxaparin 40 mg/0.4 mL Syringe SUBCUT ×2 (00:38→23:08)
[2024-03-31] MEDS: dextrose 5%-lactated ringers 1,000 ML 75 ML IV ×2 (00:39→13:46)
[2024-03-31 00:41] LABS: Estmated Average Glucose 91; Hemoglobin A1C 4.8 % (4.0-6.0)
--- NOTE | 2024-03-31 01:28 | ECG_ITS ---
[facility] Test Date: 2024-03-31 Pat Name: Amanda Chahal Department: Room: 278 Gender: Female Field Recorder: : 1945 Requested By: Bozena Fish Order Number: [id number] Alec MD: Sadi Rivera M.D. Measurements Intervals [place] Rate: 92 P: 50 CA: 133 QRS: 65 QRSD: 93 T: 59 QT: 383 QTc: 476 Interpretive Statements SINUS RHYTHM WITH OCCASIONAL SUPRAVENTRICULAR PREMATURE COMPLEXES NONSPECIFIC ST & T-WAVE ABNORMALITY Compared to ECG 03/30/2024 21:30:55 T-wave abnormality now present Myocardial infarct finding no longer present Electronically Signed On 03-31-2024 9:06:57 CDT by Sadi Rivera M.D. [id number]
[2024-03-31 02:22] LABS: Vitamin B12 891 pg/mL (232-1245)
[2024-03-31 02:27] LABS: Basophils % 0.2 %; Eosinophils # 0.4 10^3/uL (0.0-0.8); Eosinophils % 3.8 %; Hematocrit 31.9 % (36-47); Lymphocytes # 0.6 10^3/uL (0.8-4.8); Lymphocytes % 5.9 %; Mean Corpuscular HGB Conc 31.3 g/dL (30-55); Mean Corpuscular Hemoglobin 27.9 pg (27-33); Mean Corpuscular Volume 89.1 fl (85-98); Monocytes # 0.8 10^3/uL (0.2-0.9); Monocytes % 8.7 %; Nucleated Red Blood Cells % 0 %; Platelet Count 160 10^3/cmm (157-399); Red Blood Count 3.58 10^6/uL (3.85-5.65); Red Cell Distribution Width 14.5 % (12.1-15.1); White Blood Count 9.27 10^3/uL (3.29-11.43)
[2024-03-31 02:49] LABS: Alanine Aminotransferase 71 U/L (0-33); Albumin Level 3.4 g/dL (3.5-5.2); Alkaline Phosphatase 275 U/L (35-105); Anion Gap 15.1 (5-19); Aspartate Amino Transferase 127 U/L (0-32); Blood Urea Nitrogen 14 mg/dL (8-23); Calcium 8.4 mg/dL (8.5-10.5); Carbon Dioxide 22 mmol/L (22-29); Chloride 106 mmol/L (98-107); Creatinine Clr Calc Pharmacy 49.5508; Globulin 2.2 g/dL (1.3-4.6); Glucose 137 mg/dL (65-115); Magnesium 1.9 mg/dL (1.7-2.3); Osmolality Calculated 293 mOsm/kg (285-295); Phosphorus 2.9 mg/dL (2.5-4.5); Potassium 3.1 mmol/L (3.5-5.1); Sodium 140 mmol/L (136-145); Total Bilirubin 0.7 mg/dL (0.15-1.2); Total Protein 5.6 g/dL (6.6-8.7); Troponin 5 6HR 26.68 ng/L (0-10); Troponin 5 6HR Delta 2.68 ng/L (0-12)
[2024-03-31 05:12] VITALS: BP 137/65; PULSE 79; RESP 16; TEMP 37.1; O2SAT 95
[2024-03-31 07:42] VITALS: BP 118/55; PULSE 85; RESP 16; TEMP 36.4; O2SAT 99
--- NOTE | 2024-03-31 08:57 | PC.CHAP ---
Pastoral Care Encounter/Spiritual Assessment Type of Contact [] Declined beehive kiln supervisor visit [] Patient/Family/Request visit [] Outpatient visit [] Follow-up visit [] Physician referral [] Code/Alert [] Routine visit [] Staff referral [] Actively dying [x] Patient sleeping [] Family support [] [] Out of room [] Palliative care [] [] Receiving care in room [] Pre-surgical visit [] Trauma [] Long length of stay [] ICU visit [] Other: Relational/Emotional Strength [] Patient feels connected with others/family/visitors/staff [] Distress [] Loneliness/isolation [] Abandonment Spirituality of Patient [] Person of Kaila [] Attends Hoahaoism of their Kaila [] Believes in Prayer [] Reads Bible or Holiness materials [] There are Spiritual issues to be addressed [employer]ician Interventions [] Prayer [] Active listening [] Non-anxious presence [] Spiritual/emotional support [] Crisis/trauma care [] Spiritual counseling [] Bereavement support [] Provided bereavement packet [] Provided Bible/devotional materials [] Provided toy/stuffed animal, coloring book to patient or family member [] Provided Communion [] Anointing/[place] [] Salvation [] Completed spiritual assessment [] Other: Impact on Illness or Injury [] Angry [] Fearful [] Anxious [] Often cries [] Exhaustion [] Unable to work [] Unable to attend buddhist [] Unable to walk/stand [] Unable to read [] Unable to drive [] Unable to eat/drink [] Unable to sleep [] Unable to be with family [] Patient intubated [] Other: Summary Time spent with patient
[2024-03-31] MEDS: cefTRIAXone 1,000 MG in sodium chloride 0.9% (plus) 50 ML 100 MG IV (09:22)
--- NOTE | 2024-03-31 09:23 | PC.PHAR ---
RHIANNA (spouse) STATES HE CAN'T GO OVER PT MEDICATIONS BECAUSE RPh AT [facility] CAME OUT AND PICKED ALL THEM UP YESTERDAY TO ATTEMPT TO STRAIGHTEN THEM OUT. [facility] IS FAXING MED LIST THIS MORNING 03/31/24 9:25AM
--- NOTE | 2024-03-31 11:18 | P.PN_ITS ---
Subjective 2 Subjective: Patient is slightly more verbally responsive, able to make eye contact and say 1 or 2 words Spoke with her who is planning to be in the hospital today Today he stated that he was concerned about seizure that is why he asked for EMS to take her to the hospital for further evaluation, he is not sure about hospice stating that she was on hospice in the past but not recently is also suffering from dementia and not able to take care of her, I am reviewing her records seem like she has not been a good historian, she has a multiple visit secondary to abdominal pain and she was diagnosed with hiatal hernia nothing remarkable, multiple hospital admissions and there was concern for failure to thrive both and not able to take care of themselves, has been hotlined in the past as well previous CT scan showed increased thickening in the rectal wall concerning changes for rectal or anal mass or rectal prolapse. There was also consideration for hemorrhoids. Vitals/I&O/Wt Last Vital Signs Temp 97.6 F 03/31/24 07:42 Pulse 85 03/31/24 07:42 Resp 16 03/31/24 07:42 BP 118/55 03/31/24 07:42 Pulse Ox 99 03/31/24 07:42 O2 Del Method Room Air 03/31/24 07:42 03/30/24 03/31/24 03/31/24 22:59 06:59 14:59 Intake Total 1000 / 1000 736.25 / 736.25 Output Total 900 / 900 Balance 100 / 100 736.25 / 736.25 Weight last 48 hrs Weight 50.462 kg Weight 49.895 kg Physical Exam 2 Narrative: Patient is dehydrated Able to say 1 or 2 words Makes eye contact today Able to move extremities Dehydrated extremely Not able to follow commands S1, S2 Currently on room air Urinary Catheter Management: Castillo: Cath Placed During This Visit: yes Reason for Continuing Indwelling Catheter: Other Urinary Catheter Date of Insertion: 03/30/24 Urinary Catheter Time of Insertion: 20:49 Data 03/31/24 02:16 03/31/24 02:16 A&P Assessment and plan (1) Dementia: (2) Altered mental status: (3) Hypokalemia: Plan Advance diet to full liquids Patient is slightly more responsive as compared to yesterday I do not appreciate any signs of seizure Continue D5 LR Signs of dehydration but are persistent Blood pressure has been stable on current antihypertensive regimen Patient most likely will need half-way questionable ability to take care of herself, is also suffering with dementia Patient remains full code for now Full liquid diet DVT prophylaxis on board Attestations 2 Medical Necessity Statement*: Continue medical management Diagnoses Dementia F03.90 Altered mental status R41.82 Hypokalemia E87.6
[2024-03-31 11:53] VITALS: BP 121/62; PULSE 87; RESP 17; TEMP 36.6; O2SAT 99
[2024-03-31 15:40] VITALS: BP 146/68; PULSE 94; RESP 16; TEMP 36.7; O2SAT 95
[2024-03-31 20:00] VITALS: BP 122/68; PULSE 84; RESP 17; TEMP 37.3; O2SAT 96
[2024-04-01] VITALS (7 sets, daily range): BP systolic 127–169; BP diastolic 68–83; PULSE 73–88; RESP 16–20; TEMP 36.4–37.3; O2SAT 97–100
[2024-04-01] MEDS: dextrose 5%-lactated ringers 1,000 ML 75 ML IV (01:54)
[2024-04-01 04:19] LABS: Blood Urea Nitrogen 9 mg/dL (8-23); Calcium 9.1 mg/dL (8.5-10.5); Carbon Dioxide 21 mmol/L (22-29); Chloride 108 mmol/L (98-107); Creatinine Clr Calc Pharmacy 49.7583; Glucose 132 mg/dL (65-115); Osmolality Calculated 295 mOsm/kg (285-295); Sodium 142 mmol/L (136-145)
[2024-04-01 04:24] LABS: Anion Gap 16.2 (5-19); Potassium 3.2 mmol/L (3.5-5.1)
[2024-04-01] MEDS: cefTRIAXone 1,000 MG in sodium chloride 0.9% (plus) 50 ML 100 MG IV (09:38)
--- NOTE | 2024-04-01 09:56 | PM.DCS ---
Discharge Providers Date of Admission: 03/30/24 22:02 Date of Discharge: April 01, 2024 Attending Provider at Admission: Jm Gonzalez MD Attending Provider at Discharge: Jm Gonzalez MD Primary Care Provider: Joseph Dawson MD Diagnoses at Discharge Discharge Diagnosis (1) Dementia: Status: Acute (2) Altered mental status: Status: Acute (3) Hypokalemia: Status: Acute Reason for Visit Reason for Visit: AMS Hospital Course Hospital Course 78-year female w history of hypothyroidism, dementia, GERD, failure to thrive, multiple admissions at different hospital, she is from [place], has been hotlined in the past, lives with her present to the hospital for concern related to seizure. is stating that he was concerned about seizure related activity that is why he sent her to the hospital for evaluation. Patient extremely dehydrated, she was not able to communicate, she only answers in yes and no and most of the time states I guess . Has been tried to spoon feed which she tolerated well. We kept her on IV fluids her CBC BMP remained unremarkable TSH B12 was normal. She remained afebrile. No significant component of UTI. Patient has significant/advanced dementia, multiple family meetings conducted, we found out that patient was being started on hospice care, case management Naida facilitated placement to hospice at the time of discharge. She will be discharged home with hospice. We will arrange a ride. Physical Exam Narrative: Patient is dehydrated Able to say 1 or 2 words Makes eye contact today Able to move extremities Dehydrated extremely Not able to follow commands S1, S2 Currently on room air Urinary Catheter Management: Castillo: Cath Placed During This Visit: yes Reason for Continuing Indwelling Catheter: Other Urinary Catheter Date of Insertion: 03/30/24 Urinary Catheter Time of Insertion: 20:49 Discharge Data Studies Completed and Pending Completed Studies During Hospitalization Category Date Time Status CT abdomen pelvis w con* [id number] Stat Cat Scan 03/30/24 21:[address] chest wo con [id number] Stat Cat Scan 03/30/24 20:[address] head wo con* [id number] Stat Cat Scan 03/30/24 19:27 Completed XR chest 1V portable [id number] Stat Exams 03/30/24 19:27 Completed Radiology Impressions Chest X-Ray 03/30/24 19:27 IMPRESSION: No acute pulmonary disease. Head CT 03/30/24 19:27 IMPRESSION: Acute intracranial findings. Moderate microangiopathy and global cerebral volume loss. ADDENDUM: 03/30/246 Please note the impression should read no acute intracranial findings. Chest CT 03/30/24 20:15 IMPRESSION: 1. Calcified granuloma of the left lower lobe previously described as a nodular opacity overlying the left costophrenic angle. No suspicious pulmonary nodules. Mild atelectasis of the posterior right lung base. 2. Moderately sized hiatal hernia. Abdomen/Pelvis CT 03/30/24 21:49 IMPRESSION: 1. Moderately sized hiatal hernia. 2. Severe diverticulosis without evidence of diverticulitis. Laboratory Results WBC 9.27 10^3/uL (3.29-11.43) 03/31/24 02:16 RBC 3.58 10^6/uL (3.85-5.65) L 03/31/24 02:16 Hgb 10.00 g/dL (11.27-16.99) L 03/31/24 02:16 Hct 31.9 % (36-47) L 03/31/24 02:16 MCV 89.1 fl (85-98) 03/31/24 02:16 MCH 27.9 pg (27-33) 03/31/24 02:16 MCHC 31.3 g/dL (30-55) 03/31/24 02:16 RDW 14.5 % (12.1-15.1) 03/31/24 02:16 Plt Count 160 10^3/cmm (157-399) D 03/31/24 02:16 MPV 12.0 fL (7.4-10.4) H 03/31/24 02:16 Neut % (Auto) 81.0 % 03/31/24 02:16 Lymph % (Auto) 5.9 % 03/31/24 02:16 [place] % (Auto) 8.7 % 03/31/24 02:16 Eos % (Auto) 3.8 % 03/31/24 02:16 Baso % (Auto) 0.2 % 03/31/24 02:16 Neut # (Auto) 7.50 10^3/uL (1.8-7.7) 03/31/24 02:16 Lymph # (Auto) 0.6 10^3/uL (0.8-4.8) L 03/31/24 02:16 [place] # (Auto) 0.8 10^3/uL (0.2-0.9) 03/31/24 02:16 Eos # (Auto) 0.4 10^3/uL (0.0-0.8) 03/31/24 02:16 Baso # (Auto) 0.0 10^3/uL (0.0-0.1) 03/31/24 02:16 Nucleated RBC % (auto) 0 % 03/31/24 02:16 Nucleated RBCs # 0.0 /100WBC 03/31/24 02:16 D-Dimer 2.14 ug/mLFEU (0-0.59) H 03/30/24 19:40 Specimen Type Arterial 03/30/24 21:50 Sample Site Radial, right 03/30/24 21:50 ABG pH 7.48 (7.35-7.45) H 03/30/24 21:50 ABG pCO2 25.8 mmHg (35-45) L 03/30/24 21:50 ABG pO2 115.0 mmHg (80.0-100.0) H 03/30/24 21:50 ABG HCO3 19.3 mmol/L (22-26) L 03/30/24 21:50 ABG Base Excess -3.1 mmol/L (-2.0-2.0) L 03/30/24 21:50 Janes Test Pos 03/30/24 21:50 Hematocrit 32.6 % (37-47) L 03/30/24 21:50 O2 Delivery Device None 03/30/24 21:50 Intensive Care Specialist ID Cl 03/30/24 21:50 Sodium 142 mmol/L (136-145) 04/01/24 03:50 Potassium 3.2 mmol/L (3.5-5.1) L 04/01/24 03:50 Chloride 108 mmol/L (98-107) H 04/01/24 03:50 Carbon Dioxide 21 mmol/L (22-29) L 04/01/24 03:50 Anion Gap 16.2 (5-19) 04/01/24 03:50 BUN 9 mg/dL (8-23) 04/01/24 03:50 Creatinine 0.4 mg/dL (0.5-0.9) L 04/01/24 03:50 GFR Calculation Not Reportable 04/01/24 03:50 Glucose 132 mg/dL (65-115) H 04/01/24 03:50 POC Glucose 108 mg/dL (70-110) 03/30/24 20:10 Estimat Average Glucose 91 03/30/24 19:40 Hemoglobin A1c 4.8 % (4.0-6.0) 03/30/24 19:40 Calculated Osmolality 295 mOsm/kg (285-295) 04/01/24 03:50 Lactic Acid 0.8 mmol/L (0.5-2.2) 03/30/24 19:40 Calcium 9.1 mg/dL (8.5-10.5) 04/01/24 03:50 Phosphorus 2.9 mg/dL (2.5-4.5) 03/31/24 02:16 Magnesium 1.9 mg/dL (1.7-2.3) 03/31/24 02:16 Total Bilirubin 0.7 mg/dL (0.15-1.2) 03/31/24 02:16 AST 127 U/L (0-32) H 03/31/24 02:16 ALT 71 U/L (0-33) H 03/31/24 02:16 Alkaline Phosphatase 275 U/L (35-105) H 03/31/24 02:16 Ammonia 11 umol/L (11-51) 03/30/24 21:50 Troponin T Baseline 24 ng/L (0-10) H 03/30/24 19:40 Troponin T 120 Minute 22.46 ng/L (0-10) H 03/30/24 21:40 Delta Troponin T -1.54 ABS# (0-10) L 03/30/24 21:40 Troponin T Hi Sens 6Hr 26.68 ng/L (0-10) H 03/31/24 02:16 Troponin T Hi Sens 6Hr Delta 2.68 ng/L (0-12) 03/31/24 02:16 Total Protein 5.6 g/dL (6.6-8.7) L 03/31/24 02:16 Albumin 3.4 g/dL (3.5-5.2) L 03/31/24 02:16 Globulin 2.2 g/dL (1.3-4.6) 03/31/24 02:16 Vitamin B12 891 pg/mL (232-1245) 03/30/24 19:40 Procalcitonin 0.65 ng/mL (0-0.5) H 03/30/24 19:40 TSH Cancelled 03/30/24 21:40 Prolactin 18.71 ng/mL (4.8-23.3) 03/30/24 21:40 Urine Color Yellow (Yellow) 03/30/24 20:12 Urine Appearance Turbid (CLEAR) A 03/30/24 20:12 Urine pH 7.5 (5-7) 03/30/24 20:12 Ur Specific [place] 1.015 (1.005-1.030) 03/30/24 20:12 Urine Protein Trace (Negative) A 03/30/24 20:12 Urine Glucose (UA) Negative (Normal) 03/30/24 20:12 Urine Ketones Negative (Negative) 03/30/24 20:12 Urine Blood Negative (Negative) 03/30/24 20:12 Urine Nitrate Negative (Negative) 03/30/24 20:12 Urine Bilirubin Negative (Negative) 03/30/24 20:12 Urine Urobilinogen 1.0 mg/dL (Negative) 03/30/24 20:12 Ur Leukocyte Esterase Trace (Negative) A 03/30/24 20:12 Urine RBC 0-2 /hpf (0-2) 03/30/24 20:12 Urine WBC 6-10 /hpf (0-5) 03/30/24 20:12 Ur Squamous Epith Cells 0-5 /hpf (0-5) 03/30/24 20:12 Amorphous Sediment Not Reportable 03/30/24 20:12 Urine Bacteria None seen /hpf (NONE) 03/30/24 20:12 Hyaline Casts 0.81 /lpf 03/30/24 20:12 Urine Opiates Screen Negative ng/mL (Negative) 03/30/24 20:42 Ur Barbiturates Screen Negative ng/mL (Negative) 03/30/24 20:42 Ur Phencyclidine Scrn Negative ng/mL (Negative) 03/30/24 20:42 Ur Amphetamines Screen Negative ng/mL (Negative) 03/30/24 20:42 U Benzodiazepines Scrn Negative ng/mL (Negative) 03/30/24 20:42 Urine Cocaine Screen Negative ng/mL (Negative) 03/30/24 20:42 U Marijuana (THC) Screen Negative ng/mL (Negative) 03/30/24 20:42 Ethyl Alcohol < 10 mg/dL (0-10) 03/30/24 19:40 Vitals Last Vital Signs Temp 97.7 F 04/01/24 07:18 Pulse 73 04/01/24 07:18 Resp 16 04/01/24 07:18 BP 134/73 04/01/24 07:18 Pulse Ox 99 04/01/24 07:18 O2 Del Method Room Air 04/01/24 07:18 Discharge Plan Discharge Patient Disposition: Hospice - Home Condition: Stable Prescriptions: Continued levetiracetam 500 mg tablet 500 mg PO BID sertraline 50 mg tablet 50 mg PO DAILY metoprolol tartrate 25 mg tablet 25 mg PO BID amlodipine 5 mg tablet 5 mg PO BID levothyroxine 25 mcg tablet See Rx Instructions .ROUTE .COMPLEX Rx Instructions: TAKE 1 TABLET BY MOUTH ONCE DAILY ALTERNATING WITH 2 TABLETS DAILY DIRECTED. vitamin E 268 mg (400 unit) Capsule 268 mg PO DAILY Women's One Daily 27-0.4 mg Tablet 1 tab PO DAILY cholecalciferol (vitamin D3) [Vitamin D3] 25 mcg (1,000 unit) Tablet 25 mcg PO DAILY omeprazole 40 mg capsule,delayed release(DR/EC) 40 mg PO DAILY polyethylene glycol 3350 [Miralax] 17 gram/dose powder 17 g PO DAILY Qty: 510 0RF Rx Instructions: Take 1-2 scoops daily for the next 3 months to keep stools soft glycerin (adult) Suppository 1 supp MI DAILY PRN (Reason: constipation) Qty: 12 0RF Discontinued sennosides-docusate sodium [Senna-S] 8.6-50 mg tablet 2 tab-cap PO BID Qty: 60 0RF atorvastatin 40 mg tablet 40 mg PO BEDTIME aspirin 81 mg tablet,delayed release (DR/EC) 81 mg PO DAILY lisinopril 20 mg tablet 20 mg PO BID lovastatin 40 mg tablet 80 mg PO DAILY mirtazapine 15 mg tablet 15 mg PO BEDTIME Discharge Orders: Discharge Order (Routine); Ordered 04/01/24 Ordered By: Jm Gonzalez Referrals: [facility] [Outside] Joseph Dawson MD [Primary Care Provider] - 04/05/24 10:00 am (APPOINTMENT IN [facility] WITH ASHA HO) Patient Instructions: Altered Mental Status (ED) Discharge Attestations Time Spent in Discharge Care*: greater than 30 min Quality Metrics Clinical Quality Measures [ No reported AMI, CVA or VTE this stay] Coding Level of Care Code Acute Code for Chg Fwd Diagnoses Dementia F03.90 Altered mental status R41.82 Hypokalemia E87.6
--- NOTE | 2024-04-01 10:31 | PC.CHAP ---
Pastoral Care Encounter/Spiritual Assessment Type of Contact [] Declined customer account technician visit [] Patient/Family/Request visit [] Outpatient visit [x] Follow-up visit [] Physician referral [] Code/Alert [x] Routine visit [] Staff referral [] Actively dying [] Patient sleeping [] Family support [] [] Out of room [] Palliative care [] [] Receiving care in room [] Pre-surgical visit [] Trauma [] Long length of stay [] ICU visit [] Other: Relational/Emotional Strength [x] Patient feels connected with others/family/visitors/staff [] Distress [] Loneliness/isolation [] Abandonment Spirituality of Patient [x] Person of [place]a [] Attends Druze of their [place] [x] Believes in Prayer [] Reads Bible or Mu-Ism materials [] There are Spiritual issues to be addressed Scroll Assembler Interventions [x] Prayer [X] Active listening [] Non-anxious presence [] Spiritual/emotional support [] Crisis/trauma care [] Spiritual counseling [] Bereavement support [] Provided bereavement packet [] Provided Bible/devotional materials [] Provided toy/stuffed animal, coloring book to patient or family member [] Provided Communion [] Anointing/[place] [] Salvation [] Completed spiritual assessment [] Other: Impact on Illness or Injury [] Angry [] Fearful [] Anxious [] Often cries [] Exhaustion [] Unable to work [] Unable to attend zoroastrianism [] Unable to walk/stand [] Unable to read [] Unable to drive [] Unable to eat/drink [] Unable to sleep [] Unable to be with family [] Patient intubated [] Other: Summary Prayer Time spent with patient 5 min
== END 2024-04-01 21:10 | disposition hospice, home (50) | DRG 884 ==
LOC: ER 21:36 → MEDSURG 22:03
PROVIDERS: Admitting Provider Internal Medicine; Emergency Provider Emergency Medicine; PCP Family Medicine; Visit Provider Internal Medicine
DX: F03.90 Unspecified dementia, unspecified severity, without behavioral disturbance, psychotic disturbance, mood disturbance, and anxiety (principal); G93.41 Metabolic encephalopathy; Z68.1 Body mass index [BMI] 19.9 or less, adult; E86.0 Dehydration; R56.9 Unspecified convulsions; E03.9 Hypothyroidism, unspecified; I10 Essential (primary) hypertension; K44.9 Diaphragmatic hernia without obstruction or gangrene; E87.6 Hypokalemia; F06.1 Catatonic disorder due to known physiological condition; K21.9 Gastro-esophageal reflux disease without esophagitis; R62.7 Adult failure to thrive
CPT/HCPCS: 36415; 36416; 36600; 51702; 70450; 71045; 71250; 74177; 80048; 80053; 80306; 80307; 81003; 81015; 82140; 82274; 82607; 82803; 82962; 83036; 83605; 83735; 84100; 84145; 84146; 84443; 84484; 85025; 85378; 93005; 96360; 96372; 99285; J0696; J1650; J3411; J7030; J7121; Q9967